=== PATIENT | male | born 1970 | race Caucasian/White ===

== ENCOUNTER 2017-01-17 12:23 | Emergency (ER) | payer SELFPAY ==
[2017-01-17 14:43] VITALS: BP 134/58
[2017-01-17] MEDS ORDERED: Silver Sulfadiazine 1%* 20 GM TOPICAL ONE (15:55)
--- NOTE | 2017-01-17 16:03 | UC ---
Gerardo Billingsley Alfonso, scribed for Ana Paula Morales MD on 01/17/17 at 1542 . Lower Extremity/Ankle HPI - HPI Summary HPI Summary: This patient is a 46 year old M presenting to [facility] with a chief complaint of LLE pain since 3 days ago. 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 The CC is described as a constant burning but mild. Pt rates the pain 3/10 in severity. Pt states pain worse with palpation. No analgesia taken. Pt states concerned regarding infection, Pt states had blisters on both anterior rodriguez and calf - psoterior blister popped in shower. Pt reports an erythematous blister at his LLE. Pt not immuncomprised. No h/o MRSA. This is workers comp claim. PMHx of NIDDM for which he is taking metformin. Denies PMHx of MRSA. Pt reports his last tetanus shot was likely within the past 4 years. Patients medication and allergies reviewed this visit. - History of Current Complaint Chief Complaint: UCBurn Stated Complaint: LEG BURN FROM STEAM Time Seen by Provider: 01/17/17 15:06 Hx Obtained From: Patient Onset/Duration: Sudden Onset, Lasting Days - 3, Still Present Severity Initially: Moderate Severity Currently: Moderate Pain Intensity: 3 Pain Scale Used: 0-10 Numeric Aggravating Factor(s): Other - palpation Alleviating Factor(s): Nothing Able to Bear Weight: Yes Related History: Occupational Injury - Allergies/Home Medications Allergies/Adverse Reactions: Allergies Allergy/AdvReac Type Severity Reaction Status Date / Time Adhesive Tape Allergy Rash Verified 01/17/17 13:00 Morphine Allergy BODY Verified 01/17/17 13:00 TEMPTURE FLUCTUATES QUICKLY Penicillins Allergy Nausea Verified 01/17/17 13:00 Vancomycin Allergy Itching Verified 01/17/17 13:00 Home Medications: Home Medications Sitagliptin Phosphate [Januvia] 25 mg PO 01/17/17 [History] PMH/Surg Hx/FS Hx/Imm Hx Previously Healthy: Yes Endocrine History: Diabetes - medication only - Surgical History Surgical History: Yes Surgery Procedure, Year, and Place: BILATERAL FEMUR SURGERY WITH RODS. DRAINED CALCIUM DEPOSIT ON LT THIGH. GALLBLADDER - Family History Known Family History: Positive: Diabetes - father, grandmother - Social History Occupation: Employed Full-time Lives: With Family Alcohol Use: None Substance Use Type: None Smoking Status (MU): Never Smoked Tobacco Review of Systems Constitutional: Negative Skin: Other - erythematous blister secondary to steam burn LLE Eyes: Negative ENT: Negative Respiratory: Negative Cardiovascular: Negative Gastrointestinal: Negative Genitourinary: Negative Motor: Negative Neurovascular: Negative Musculoskeletal: Negative Neurological: Negative Psychological: Negative All Other Systems Reviewed And Are Negative: Yes Physical Exam Triage Information Reviewed: Yes Appearance: Well-Appearing, No Pain Distress, Well-Nourished Vital Signs: Initial Vital Signs Temp 97.8 F 01/17/17 12:55 Pulse 83 01/17/17 12:55 Resp 16 01/17/17 12:55 BP 141/100 01/17/17 12:55 Pulse Ox 99 01/17/17 12:55 Vital Signs Reviewed: Yes ENT: Positive: Hearing grossly normal Neck: Positive: Supple Respiratory: Positive: Chest non-tender, Lungs clear, Normal breath sounds, No respiratory distress, No accessory muscle use Cardiovascular Exam: Normal Cardiovascular: Positive: RRR, No Murmur Musculoskeletal Exam: Normal Musculoskeletal: Positive: Strength Intact Neurological Exam: Normal Neurological: Positive: Alert, Muscle Tone Normal Psychological Exam: Normal Skin: Positive: Other - LLE Anterior distal rodriguez (above sock line) pt with 3cm blister with surruonding erythema. Mild discomfort. No fluctance outside blister. minimal warmth, no streaking Posterior distal calf, pt with 3 small blister, linear. 2 medial are intact, lateral blister unroofed. No erythema, no drainage, no fluctance Procedures - Procedure Summary Procedure Summary: Area cleans with Betadine in a sterile fashion. 25 gauge needle to decompression blister. copious, clear discharge flowed and then milked from blister. Wound covered with silvadene ointment, on stick and coban Pt tolerated well. Lower Extremity Course/Dx - Course Course Of Treatment: 46 year old M presents to the [facility] with a CC of LLE pain since 3 days ago. 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 Pt reports an erythematous blister at his LLE. PMHx of NIDDM for which he is taking metformin. Patient will be discharged with follow up from Dr. Merino (PCP) and Dr. Foreman (surgeon covering kong). Pt is agreeable with this plan. doxy. silvadene. wound care discussed. tdap utd. return precautions discussed - Differential Dx/Diagnosis Provider Diagnoses: Partial thickness second degree burn to LLE. workers comp paperwork complete Discharge - Discharge Plan Condition: Stable Disposition: HOME Prescriptions: Doxycycline (Monohydrate) [Doxycycline Monohydrate] 100 mg PO BID #14 cap Silver Sulfadiazine 1%* [SILVadine 1%*] 1 applic TOPICAL BID #1 jar Patient Education Materials: Second Degree Burn (ED) Referrals: Casie Merino [Primary Care Provider] - Mele Foreman MD [Medical Doctor] - Additional Instructions: - Keep area clean - Cover with thick layer of silvadene ointment, non stick bandage and yuridia wrap or coban - Take antibiotics as prescribed until gone - Okay to alternate ibuprofen (Advil, Motrin) and Tylenol every 3 hours for pain. Take with food - Contact your doctor or the Dr. Foreman, burn surgeon, to schedule a follow- up appointment this week. Contact your doctor, return here or go to the emergency department The documentation as recorded by the Gerardo vega Alfonso accurately reflects the service I personally performed and the decisions made by me, Ana Paula Morales MD.
== END 2017-01-17 16:15 | disposition home or self-care (01) ==
LOC: UCEAST 12:23
DX: T24.292A Burn of second degree of multiple sites of left lower limb, except ankle and foot, initial encounter (principal); X13.1XXA Other contact with steam and other hot vapors, initial encounter; Y93.89 Activity, other specified; Y92.9 Unspecified place or not applicable; Y99.0 Civilian activity done for income or pay; E11.9 Type 2 diabetes mellitus without complications; Z79.84 Long term (current) use of oral hypoglycemic drugs; Z88.5 Allergy status to narcotic agent; Z88.1 Allergy status to other antibiotic agents; Z88.0 Allergy status to penicillin; Z91.048 Other nonmedicinal substance allergy status
CPT/HCPCS: 16020; 99213; A9270-GY; G0463

== ENCOUNTER 2018-05-14 09:56 | Emergency (ER) | payer SELFPAY ==
--- NOTE | 2018-05-14 10:49 | UC ---
Lower Extremity/Ankle HPI - HPI Summary HPI Summary: 48 y/o male presents to the urgent care c/o pain in arch of left foot now swollen pt denies trauma - History of Current Complaint Chief Complaint: UCLowerExtremity Stated Complaint: ANKLE PAIN Time Seen by Provider: 05/14/18 10:38 Hx Obtained From: Patient Onset/Duration: Gradual Onset, Lasting Weeks - 1 week, Still Present, Worse Since - yesterday Severity Initially: Mild Severity Currently: Moderate Pain Intensity: 8 Pain Scale Used: 0-10 Numeric Aggravating Factor(s): Standing, Ambulation Alleviating Factor(s): Rest, OTC Meds Able to Bear Weight: Yes - Risk Factors Gout Risk Factors: Negative DVT Risk Factors: Negative Septic Arthritis Risk Factor: Negative - Allergies/Home Medications Allergies/Adverse Reactions: Allergies Allergy/AdvReac Type Severity Reaction Status Date / Time Adhesive Tape Allergy Rash Verified 01/17/17 13:00 morphine Allergy bodty temp Verified 05/14/18 10:01 increases Penicillins Allergy Nausea Verified 05/14/18 10:02 vancomycin Allergy Itching Verified 05/14/18 10:02 Home Medications: Home Medications Atorvastatin* [Lipitor 10 MG*] 10 mg PO DAILY 05/14/18 [History Confirmed ] Buspirone HCl 10 mg PO DAILY 05/14/18 [History Confirmed 05/14/18] Glimepiride 1 mg PO DAILY 05/14/18 [History Confirmed 05/14/18] Sitaglip/Metform XR50/1000(NR) [Janumet Xr (NR)] 1 tab PO DAILY [History Confirmed 05/14/18] Valsartan/HCTZ 160/25(NF) [Diovan Hct 160/25(NF)] 25 - 320 mg PO DAILY 05/14/18 [History Confirmed 05/14/18] amLODIPine TAB* [Norvasc 5 mg TAB*] 10 mg PO DAILY 05/14/18 [History Confirmed 05/14/18] PMH/Surg Hx/FS Hx/Imm Hx Previously Healthy: Yes Endocrine History: Diabetes, Dyslipidemia Cardiovascular History: Hypertension - Surgical History Surgical History: Yes Surgery Procedure, Year, and Place: BILATERAL FEMUR SURGERY WITH RODS. DRAINED CALCIUM DEPOSIT ON LT THIGH. GALLBLADDER - Family History Known Family History: Positive: Cardiac Disease, Hypertension, Diabetes - father , grandmother - Social History Occupation: Employed Full-time Lives: With Family Alcohol Use: None Substance Use Type: None Smoking Status (MU): Never Smoked Tobacco Review of Systems All Other Systems Reviewed And Are Negative: Yes Constitutional: Positive: Negative Skin: Positive: Rash - red rash aroun dthe medial aspect of foot w/ swelling, Other - painful blister in the distal plantar side of left foot Eyes: Positive: Negative ENT: Positive: Negative Respiratory: Positive: Negative Cardiovascular: Positive: Negative Gastrointestinal: Positive: Negative Genitourinary: Positive: Negative Motor: Positive: Negative Neurovascular: Positive: Negative Musculoskeletal: Positive: Other: - left foot pain Neurological: Positive: Negative Psychological: Positive: Negative Is Patient Immunocompromised?: No Physical Exam - Summary Physical Exam Summary: Cellulitis Vital Signs Reviewed: Yes General: well developed, well nourished obese male sitting in the examining table w/o any apparent distress. Eyes: Positive: Conjunctiva Clear - PERRLA, EOMI ENT: Positive: Normal ENT inspection, Hearing grossly normal, Pharynx normal, TMs normal Neck: Positive: Supple, Nontender, No Lymphadenopathy Respiratory: Positive: Chest nontender, Lungs clear, Normal breath sounds Cardiovascular: Positive: RRR, No Murmur, Pulses Normal Abdomen Description: Positive: Nontender, No Organomegaly, Soft. Negative: CVA Tenderness (R), CVA Tenderness (L) Bowel Sounds: Positive: Present Musculoskeletal: Positive: Strength Intact, ROM Intact, No Edema Neurological Exam: Normal Psychological Exam: Normal Skin: Positive: rashes - plantar side of the distal left foot w/ a small open blister red and tender to palpation. and also w/ erythematous patch w/ indistinct borders, warm to touch, swelling and tender to palpation on the medial aspect of the left foot around arch and moderate swelling. FROM of left foot. Triage Information Reviewed: Yes Vital Signs: Initial Vital Signs Temp 97 F 05/14/18 10:03 Pulse 93 05/14/18 10:03 Resp 17 05/14/18 10:03 BP 148/99 05/14/18 10:03 Pulse Ox 100 05/14/18 10:03 Lower Extremity Course/Dx - Course Course Of Treatment: Pt w/ infected blister on the plantar side and cellulitis of the left foot. Pt allerig reaction to Amoxicillin is nausea dna has taking kelfex before w/o any problems. Wound cleaned w/ iodines swabs by me and bacitracin oint applied and covered w/ sterile dressing. Pt Rx Keflex PO, and topical Bacitracin. rash demarcated with a skin marker and Advised if rash doubles in size and if she develops fever to go to the ER for further treatment. Pt BP today elevated w/o Hx of HTN. Pt advised to decrease salt in diet and monitor BP at home if it continues to be elevated to f/u with PCP for further management. Pt understood and agreed w/ plan of care - Differential Dx/Diagnosis Differential Diagnosis/HQI/PQRI: Arthritis, Cellulitis, Fracture (Closed), Gout , Infection, Sprain, Strain, Tendonitis Provider Diagnoses: 1- Left foot cellulitis. 2- Uncontrolled HTN Discharge - Sign-Out/Discharge Documenting (check all that apply): Patient Departure - D/c home All imaging exams completed and their final reports reviewed: No Studies - Discharge Plan Condition: Stable Disposition: HOME Prescriptions: Bacitracin OINTMENT* 1 applic TOPICAL TID #1 tube Cephalexin CAP* [Keflex CAP*] 500 mg PO QID #28 cap Patient Education Materials: Cellulitis (ED), Low-Sodium Diet (ED) Referrals: Casie Merino [Primary Care Provider] - 3 Days Additional Instructions: 1-Please take full course of Antibiotic. Apply Bacitracin ointme. over the foot blister as directed. Keep wound clean and dry 2- If redness and swelling doubles in size despite taking antibiotic and fever develops please go to the ER immediately. 3-Avoid standing for long periods of time or flexing your foot, keep it elevated and keep wound clean and dry. 4-Please F/u with your PCP in 3 days if not improvement of symptoms for further evaluation and treatment. 5-Your BP is elevated today. please decrease salt in your diet, monitor BP and if it continues to be elevated please f/u with your PCP for further management - Billing Disposition and Condition Condition: STABLE Disposition: Home
[2018-05-14 11:19] VITALS: BP 163/95
== END 2018-05-14 11:07 | disposition home or self-care (01) ==
LOC: UCEAST 09:56
DX: L03.116 Cellulitis of left lower limb (principal); I10 Essential (primary) hypertension; E78.5 Hyperlipidemia, unspecified; E11.9 Type 2 diabetes mellitus without complications; Z88.1 Allergy status to other antibiotic agents; Z88.0 Allergy status to penicillin; Z88.5 Allergy status to narcotic agent; Z91.048 Other nonmedicinal substance allergy status; Z79.899 Other long term (current) drug therapy
CPT/HCPCS: 99212; G0463

== ENCOUNTER 2019-03-18 22:45 | Emergency (ER) | payer OTHER ==
[2019-03-18] MEDS ORDERED: ceFAZolin 1 GM in Dextrose (*) 1 GM/50 ML BAG IVPB ONE (23:09)
[2019-03-18 23:30] LABS: ABS Basophils 0.1 10^3/ul (0-0.2); ABS Eosinophils 0.1 10^3/ul (0-0.6); ABS Lymphocytes 2.2 10^3/ul (1.0-4.8); ABS Monocytes 0.9 10^3/ul (0-0.8); ABS Neutrophils 15.2 10^3/ul (1.5-7.7); Eosinophil % 0.4 %; Hematocrit 40 % (42-52); Hemoglobin 13.7 g/dL (14.0-18.0); Lymphocyte % 11.9 %; Mean Corpuscular HGB Conc 34 g/dL (31-36); Mean Corpuscular Hemoglobin 29 pg (27-31); Mean Corpuscular Volume 85 fL (80-94); Mean Platelet Volume 8.3 fL (7.4-10.4); Platelet Count 261 10^3/uL (150-450); Red Blood Count 4.73 10^6 /uL (4.18-5.48); Red Cell Distribution Width 14 % (10-15); White Blood Count 18.5 10^3/uL (3.5-10.8)
[2019-03-18] MEDS ORDERED: ceFAZolin 1 GM* X ONE DOSE (AddVan) IVPB ×2 (23:35)
[2019-03-18 23:46] LABS: Albumin 3.8 g/dL (3.2-5.2); Albumin/Globulin Ratio 1.2 (1-3); BUN/Creatinine Ratio 10.5 (8-20); C Reactive Protein 228.78 mg/L (<8.01); Calcium 9.1 mg/dL (8.6-10.3); EGFR Non-African American 84.3 (>60); Globulin 3.2 g/dL (2-4); Potassium 3.7 mmol/L (3.5-5.0); Total Bilirubin 0.7 mg/dL (0.2-1.0)
--- NOTE | 2019-03-19 00:27 | ED ---
Lower Extremity - HPI Summary HPI Summary: Patient is a 48 y/o M presenting to [facility] with complaints of right foot swelling. He states that he sustained a burn to the bottom of his right foot a few weeks ago as a result of hot asphalt. PCP was treating this injury with silvadene. However, PCP recently changed patient's treatment from silvadene to seaweed patches. He reports that swelling of right foot onset today. He notes that he has had some drainage from the foot as well. Fever is denied. Patient states that he is pre-diabetic and is taking janumet. He claims that he cannot be admitted as his father is currently hospitalized at [facility]. On triage, pain is rated 6/10, nothing is noted to aggravate/alleviate Sx. Home medications and allergies are reviewed. - History of Current Complaint Chief Complaint: EDExtremityLower Stated Complaint: RT FOOT SWOLLEN PER PT Time Seen by Provider: 03/18/19 23:03 Hx Obtained From: Patient Onset of Pain: Prior to Arrival Onset/Duration: Still Present Severity Currently: Moderate Pain Intensity: 6 Pain Scale Used: 0-10 Numeric Timing: Constant Location: Is Discrete @ - right foot Associated Signs And Symptoms: Positive: Swelling, Other - drainage. Negative: Fever Aggravating Factor(s): Nothing Alleviating Factor(s): Nothing - Allergies/Home Medications Allergies/Adverse Reactions: Allergies Allergy/AdvReac Type Severity Reaction Status Date / Time Adhesive Tape Allergy Rash Verified 03/18/19 23:18 morphine Allergy bodty temp Verified 03/18/19 23:18 increases Penicillins Allergy Nausea Verified 03/18/19 23:18 tramadol Allergy Rash And Verified 03/18/19 23:18 Itching vancomycin Allergy Itching Verified 03/18/19 23:18 PMH/Surg Hx/FS Hx/Imm Hx Endocrine/Hematology History: Reports: Hx Diabetes - PRE-DIABETES Cardiovascular History: Reports: Hx Hypertension Denies: Hx Pacemaker/ICD History: Denies: Hx Renal Disease Sensory History: Denies: Hx Hearing Aid Psychiatric History: Denies: Hx Panic Disorder - Surgical History Surgery Procedure, Year, and Place: BILATERAL FEMUR SURGERY WITH RODS. DRAINED CALCIUM DEPOSIT ON LT THIGH. GALLBLADDER Infectious Disease History: No Infectious Disease History: Denies: Traveled Outside the [place] in Last 30 Days - Family History Known Family History: Positive: Cardiac Disease, Hypertension, Diabetes - father , grandmother - Social History Alcohol Use: None Substance Use Type: Reports: None Smoking Status (MU): Never Smoked Tobacco Review of Systems Negative: Fever Musculoskeletal: Other - drainage from right foot Positive: Edema - right foot All Other Systems Reviewed And Are Negative: Yes Physical Exam - Summary Physical Exam Summary: Appearance: Well-appearing, Well-nourished, lying in bed comfortably Skin: Warm, dry, no obvious rash; right foot is noted to be diffusely swollen. There is a quarter-sized ulcer with purulent drainage. The foot is diffusely erythematous, including the dorsum of the foot. Eyes: sclera anicteric, no conjunctival pallor ENT: mucous membranes moist, pharynx appears normal Neck: Supple, nontender Respiratory: Clear to auscultation, no signs of respiratory distress Cardiovascular: Normal S1, S2. No murmurs. Normal distal pulses in tibial and radial bilaterally. Abdomen: Soft, nontender, normal active bowel sounds present Musculoskeletal: Normal, Strength/ROM Intact Neurological: A&Ox3, awake and alert, mentation is normal, speech is fluent and appropriate Psychiatric: affect is normal, does not appear anxious or depressed Triage Information Reviewed: Yes Vital Signs On Initial Exam: Initial Vitals Temp Pulse Resp BP Pulse Ox 96.4 F 89 16 127/90 90 03/18/19 22:46 03/18/19 22:46 03/18/19 22:46 03/18/19 22:46 03/18/19 22:46 Vital Signs Reviewed: Yes Diagnostics - Vital Signs Vital Signs Temp Pulse Resp BP Pulse Ox 03/18/19 22:46 96.4 F 89 16 127/90 90 - Laboratory Lab Results: Lab Results 03/18/19 03/18/19 03/18/19 Range/Units 23:23 23:23 23:23 WBC 18.5 H (3.5-10.8) 10^3/uL RBC 4.73 (4.18-5.48) 10^6 /uL Hgb 13.7 L (14.0-18.0) g/dL Hct 40 L (42-52) % MCV 85 (80-94) fL MCH 29 (27-31) pg MCHC 34 (31-36) g/dL RDW 14 (10-15) % Plt Count 261 (150-450) 10^3/uL MPV 8.3 (7.4-10.4) fL Neut % (Auto) 82.3 % Lymph % (Auto) 11.9 % Gregory % (Auto) 4.8 % Eos % (Auto) 0.4 % Baso % (Auto) 0.6 % Absolute Neuts (auto) 15.2 H (1.5-7.7) 10^3/ul Absolute Lymphs (auto) 2.2 (1.0-4.8) 10^3/ul Absolute Monos (auto) 0.9 H (0-0.8) 10^3/ul Absolute Eos (auto) 0.1 (0-0.6) 10^3/ul Absolute Basos (auto) 0.1 (0-0.2) 10^3/ul Absolute Nucleated RBC 0.0 10^3/ul Nucleated RBC % 0.0 Sodium 132 L (135-145) mmol/L Potassium 3.7 (3.5-5.0) mmol/L Chloride 97 L (101-111) mmol/L Carbon Dioxide 29 (22-32) mmol/L Anion Gap 6 (2-11) mmol/L BUN 10 (6-24) mg/dL Creatinine 0.95 (0.67-1.17) mg/dL Est GFR ( Amer) 102.0 (>60) Est GFR (Non-Af Amer) 84.3 (>60) BUN/Creatinine Ratio 10.5 (8-20) Glucose 324 H (70-100) mg/dL Lactic Acid 1.2 (0.5-2.0) mmol/L Calcium 9.1 (8.6-10.3) mg/dL Total Bilirubin 0.70 (0.2-1.0) mg/dL AST 9 L (13-39) U/L ALT 14 (7-52) U/L Alkaline Phosphatase 87 (34-104) U/L C-Reactive Protein 228.78 H (<8.01) mg/L Total Protein 7.0 (6.4-8.9) g/dL Albumin 3.8 (3.2-5.2) g/dL Globulin 3.2 (2-4) g/dL Albumin/Globulin Ratio 1.2 (1-3) Result Diagrams: 03/18/19 23:23 03/18/19 23:23 Lab Statement: Any lab studies that have been ordered have been reviewed, and results considered in the medical decision making process. Re-Evaluation - Re-Evaluation First Eval Re-Evaluation Time: 23:35 Comment: Results of labs and tests were discussed. Admission was offered to patient, but he declined and wants to leave. Consequences of leaving AMA were extensively discussed, including significant illness, injury, disability, and possible . Patient understands these risks but is still adamant that he wants to leave AMA. Lower Extremity Course/Dx - Course Course Of Treatment: Patient is a 48 y/o M presenting to [facility] with complaints of right foot swelling. He states that he sustained a burn to the bottom of his right foot a few weeks ago as a result of hot asphalt. PCP was treating this injury with silvadene. However, PCP recently changed patient's treatment from silvadene to seaweed patches. He reports that swelling of right foot onset today. He notes that he has had some drainage from the foot as well. Fever is denied. Patient states that he is pre-diabetic and is taking janumet. He claims that he cannot be admitted as his father is currently hospitalized at [facility]. On physical exam, right foot is noted to be diffusely swollen. There is a quarter-sized ulcer with purulent drainage. The foot is diffusely erythematous, including the dorsum of the foot. Bloodwork was obtained. Abnormal values include WBC 18.5, Hgb 13.7, Hct 40, absolute neuts 15.2, absolute monos 0.9, sodium 132, chloride 97, glucose 324, AST 9, CRP 228.78, During ED course, patient received Kefzol 1 gm in dextrose duplex, 1 gm in 50 mls @ 200 mls/hr IVPB. Results of labs and tests were discussed. Admission was offered to patient, but he declined and wants to leave. Consequences of leaving AMA were extensively discussed, including significant illness, injury, disability, and possible . Patient understands these risks but is still adamant that he wants to leave AMA. He was prescribed Keflex, advised to keep his scheduled appointment with the wound clinic, and to return for worsening symptoms. - Diagnoses Provider Diagnoses: Cellulitis, Diabetic foot ulcer Discharge ED - Sign-Out/Discharge Documenting (check all that apply): Patient Departure - AMA Patient Received Moderate/Deep Sedation with Procedure: No - Discharge Plan Condition: Fair Disposition: AGAINST MEDICAL ADVICE Prescriptions: Cephalexin CAP* [Keflex CAP*] 500 mg PO QID #40 cap Patient Education Materials: Cellulitis (ED), Acute Wound Care (ED), Against Medical Advice (ED) Referrals: Casie Merino [Primary Care Provider] - 3 Days Additional Instructions: I am very concerned about this infection, especially the possibility that it may spread to the bone with that deep ulcer there. If this is getting much worse over the next couple of days, please come back so we can take another look at it. If it is improving, definitely keep your appt with the wound center. - Billing Disposition and Condition Condition: FAIR Disposition: Against Medical Advice - Attestation Statements Document Initiated by Christie: Yes Documenting Scribe: SALMA BEDOYA Provider For Whom Christie is Documenting (Include Credential): JOHNNY MINAYA MD Scribe Attestation: ISALMA, scribed for JOHNNY MINAYA MD on 03/20/19 at 0515. Scribe Documentation Reviewed: Yes Provider Attestation: The documentation as recorded by the SALMA vega accurately reflects the service I personally performed and the decisions made by me, JOHNNY MINAYA MD Status of Scribe Document: Viewed
[2019-03-19 00:38] VITALS: BP 145/80
== END 2019-03-19 00:31 | disposition left against medical advice (07) ==
LOC: ED 22:45
DX: L03.115 Cellulitis of right lower limb (principal); E11.621 Type 2 diabetes mellitus with foot ulcer; Z79.84 Long term (current) use of oral hypoglycemic drugs; I10 Essential (primary) hypertension; Z88.1 Allergy status to other antibiotic agents; Z88.5 Allergy status to narcotic agent; Z88.0 Allergy status to penicillin; Z91.048 Other nonmedicinal substance allergy status
CPT/HCPCS: 36415; 80053; 83605; 85025; 86140; 96365; 99283; J0690

== ENCOUNTER 2019-03-23 11:24 | Inpatient (IN) | payer OTHER ==
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
--- NOTE | 2019-03-23 11:39 | CONSULT ---
Consult Consult: Patient seen and examined in the wound center. Please see separate consultation dictation for . Briefly, patient was diagnosed with a two month history of a right diabetic foot ulcer. Cellulitis identified. Incision and drainage performed in the wound center. Recommendation for admission with IV antibiotics and MRI of the right foot.
[2019-03-23] MEDS ORDERED: Dextrose 50% VIAL 50 ml IV PUSH PRN (13:58)
[2019-03-23] MEDS ORDERED: Acetaminophen TAB* 325 MG PO PRN (13:58)
[2019-03-23] MEDS ORDERED: Vancomycin per Pharmacy* NOTE FOLLOW UP SCH (14:00)
[2019-03-23 14:05] LABS: ABS Eosinophils 0.2 10^3/ul (0-0.6); ABS Monocytes 0.6 10^3/ul (0-0.8); ABS Neutrophils 7.9 10^3/ul (1.5-7.7); Eosinophil % 1.9 %; Hematocrit 40 % (42-52); Hemoglobin 13.8 g/dL (14.0-18.0); Lymphocyte % 18.5 %; Mean Corpuscular HGB Conc 34 g/dL (31-36); Mean Corpuscular Hemoglobin 29 pg (27-31); Mean Corpuscular Volume 84 fL (80-94); Mean Platelet Volume 8.9 fL (7.4-10.4); Platelet Count 384 10^3/uL (150-450); Red Blood Count 4.78 10^6 /uL (4.18-5.48); Red Cell Distribution Width 14 % (10-15); White Blood Count 10.8 10^3/uL (3.5-10.8)
[2019-03-23 14:15] LABS: Albumin 3.6 g/dL (3.2-5.2); Albumin/Globulin Ratio 1.1 (1-3); BUN/Creatinine Ratio 16.5 (8-20); C Reactive Protein 139.67 mg/L (<8.01); Calcium 9.7 mg/dL (8.6-10.3); EGFR African American 115.9 (>60); EGFR Non-African American 95.8 (>60); Globulin 3.3 g/dL (2-4); Potassium 3.9 mmol/L (3.5-5.0); Total Bilirubin 0.5 mg/dL (0.2-1.0); Total Protein 6.9 g/dL (6.4-8.9)
[2019-03-23] MEDS: Heparin VIAL(*) 5000 UNITS/ML VIAL (FIVE THOUSAND) SUBCUT SCH ×2 (14:51→22:10)
[2019-03-23] MEDS: Cefepime 1 GM in Dextrose(*) 1 GM/50 ML BAG IV SCH (14:51)
[2019-03-23] MEDS: Vancomycin(*) 1,500 MG in NS 0.9% 250 ML* 250 ML IVPB ONE ×2 (15:24→16:30)
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
[2019-03-23 16:13] LABS: Erythrocyte Sed Rate 80 mm/Hr (0-14)
[2019-03-23] MEDS: diPHENhydraMINE IV* 50 MG/ML 1 ml VIAL (BENADRYL) IV PRN ×2 (16:30→23:54)
[2019-03-23] MEDS: oxyCODONE/Acetamin 5/325 MG* TAB PO PRN ×2 (17:15→22:13)
[2019-03-23] MEDS: Insulin LISPRO* 1 UNITS UNIT SUBCUT SCH ×2 (17:40→21:15)
[2019-03-23] MEDS: metroNIDAZOLE IV 500 MG/100ML* 500 MG/100 ML BAG IVPB SCH (18:39)
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
[2019-03-23] MEDS: Vancomycin(*) 1,250 MG in NS 0.9% 250 ML* 250 ML IVPB SCH (23:50)
[2019-03-24] MEDS: Cefepime 1 GM in Dextrose(*) 1 GM/50 ML BAG IV SCH ×2 (02:02→16:27)
[2019-03-24] MEDS: metroNIDAZOLE IV 500 MG/100ML* 500 MG/100 ML BAG IVPB SCH ×2 (05:14→17:19)
[2019-03-24] MEDS: Heparin VIAL(*) 5000 UNITS/ML VIAL (FIVE THOUSAND) SUBCUT SCH ×3 (05:52→21:23)
[2019-03-24] MEDS: Vancomycin(*) 1,250 MG in NS 0.9% 250 ML* 250 ML IVPB SCH ×3 (08:50→18:38)
[2019-03-24] MEDS: diPHENhydraMINE IV* 50 MG/ML 1 ml VIAL (BENADRYL) IV PRN (09:02)
[2019-03-24] MEDS: Hydrochlorothiazide TAB* 25 MG PO SCH (09:50)
[2019-03-24] MEDS: Valsartan TAB* 160 MG PO SCH (09:50)
[2019-03-24] MEDS: amLODIPine TAB* 5 MG PO SCH (09:52)
[2019-03-24] MEDS: busPIRone TAB* 10 MG PO SCH (09:52)
[2019-03-24] MEDS: Atorvastatin* 10 MG TAB PO SCH (09:52)
[2019-03-24] MEDS: Insulin LISPRO* 1 UNITS UNIT SUBCUT SCH ×4 (09:53→21:22)
[2019-03-24] MEDS: CMC:Glimepiride (NF) 2 MG TAB PO SCH (10:11)
--- NOTE | 2019-03-24 10:14 | PN ---
Progress Note - Progress Note Date of Service: 03/24/19 SOAP: Subjective: []Patient seen at bedside, pleasant and cooperative. Denies fever, chills, nausea or vomiting. Pain in right foot is moderate at its worst, mainly when foot in dependent position. Denies rash or itching after Vancomycin. Objective: [] Vital Signs Temp 98.2 F 03/24/19 07:12 Pulse 65 03/24/19 07:12 Resp 18 03/24/19 09:02 BP 142/69 03/24/19 07:12 Pulse Ox 96 03/24/19 07:12 Intake & Output 03/23/19 03/24/19 03/24/19 18:59 06:59 18:59 Intake Total 200 965 Output Total 200 Balance 200 765 Weight 252 lb 252 lb Intake: IVPB 465 ABX - FLAGYL 200 ABX - VANCOMYCIN 265 Oral 200 500 Output: Urine 200 Other: Estimated Void Large Large Laboratory Results - last 24 hr 03/23/19 03/23/19 03/23/19 12:00 12:00 12:00 WBC 10.8 RBC 4.78 Hgb 13.8 L Hct 40 L MCV 84 MCH 29 MCHC 34 RDW 14 Plt Count 384 MPV 8.9 Neut % (Auto) 73.6 Lymph % (Auto) 18.5 Callaway % (Auto) 5.7 Eos % (Auto) 1.9 Baso % (Auto) 0.3 Absolute Neuts (auto) 7.9 H Absolute Lymphs (auto) 2.0 Absolute Monos (auto) 0.6 Absolute Eos (auto) 0.2 Absolute Basos (auto) 0.0 Absolute Nucleated RBC 0.0 Nucleated RBC % 0.0 ESR 80 H Sodium 133 L Potassium 3.9 Chloride 95 L Carbon Dioxide 29 Anion Gap 9 BUN 14 Creatinine 0.85 Est GFR ( Amer) 115.9 Est GFR (Non-Af Amer) 95.8 BUN/Creatinine Ratio 16.5 Glucose 176 H POC Glucose (mg/dL) Hemoglobin A1c 9.6 H Calcium 9.7 Total Bilirubin 0.50 AST 21 ALT 33 Alkaline Phosphatase 93 C-Reactive Protein 139.67 H Total Protein 6.9 Albumin 3.6 Globulin 3.3 Albumin/Globulin Ratio 1.1 03/23/19 03/23/19 03/24/19 17:03 21:06 08:49 WBC RBC Hgb Hct MCV MCH MCHC RDW Plt Count MPV Neut % (Auto) Lymph % (Auto) Callaway % (Auto) Eos % (Auto) Baso % (Auto) Absolute Neuts (auto) Absolute Lymphs (auto) Absolute Monos (auto) Absolute Eos (auto) Absolute Basos (auto) Absolute Nucleated RBC Nucleated RBC % ESR Sodium Potassium Chloride Carbon Dioxide Anion Gap BUN Creatinine Est GFR ( Amer) Est GFR (Non-Af Amer) BUN/Creatinine Ratio Glucose POC Glucose (mg/dL) 191 H 154 H 139 H Hemoglobin A1c Calcium Total Bilirubin AST ALT Alkaline Phosphatase C-Reactive Protein Total Protein Albumin Globulin Albumin/Globulin Ratio Right foot dressings changed, small area of serosanguenous fluid on plantar dressing and bloody discharge on the dorsal Plantar ulcer with wet necrotic tissue at base, no foul odor dorsal iodoform dressing noted, toes and foot still moderately swollen, erythema is mildly improved calf NT and soft Assessment: [] Right foot infection/ osteomyelitis Plan: []MRI reveals soft tissue abscess and Osteomyelitis 3rd toe and 3rd metatarsal head He will likely require surgery Tuesday Recommend NWB RLE Continue IV Vanco/ Cefepime NPO after midnight Tuesday night
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
[2019-03-24 11:41] LABS: ABS Basophils 0.1 10^3/ul (0-0.2); ABS Eosinophils 0.2 10^3/ul (0-0.6); ABS Lymphocytes 1.6 10^3/ul (1.0-4.8); ABS Monocytes 0.5 10^3/ul (0-0.8); ABS Neutrophils 6.2 10^3/ul (1.5-7.7); Eosinophil % 1.9 %; Hematocrit 39 % (42-52); Hemoglobin 13.1 g/dL (14.0-18.0); Lymphocyte % 18.9 %; Mean Corpuscular HGB Conc 33 g/dL (31-36); Mean Corpuscular Hemoglobin 28 pg (27-31); Mean Corpuscular Volume 85 fL (80-94); Mean Platelet Volume 8.2 fL (7.4-10.4); Nucleated Red Blood Cells % 0.1; Platelet Count 356 10^3/uL (150-450); Red Blood Count 4.64 10^6 /uL (4.18-5.48); Red Cell Distribution Width 14 % (10-15); White Blood Count 8.4 10^3/uL (3.5-10.8)
[2019-03-24 11:58] LABS: BUN/Creatinine Ratio 17.2 (8-20); Calcium 9.1 mg/dL (8.6-10.3); EGFR African American 97.2 (>60); EGFR Non-African American 80.3 (>60); Potassium 4.3 mmol/L (3.5-5.0)
[2019-03-24] MEDS: oxyCODONE/Acetamin 5/325 MG* TAB PO PRN ×2 (12:08→21:23)
[2019-03-24] MEDS ORDERED: Vancomycin Trough Check NOTE FOLLOW UP ONE (15:30)
[2019-03-25] MEDS: Cefepime 1 GM in Dextrose(*) 1 GM/50 ML BAG IV SCH ×2 (01:38→13:47)
[2019-03-25] MEDS: metroNIDAZOLE IV 500 MG/100ML* 500 MG/100 ML BAG IVPB SCH ×2 (05:04→16:57)
[2019-03-25] MEDS: Vancomycin(*) 1,250 MG in NS 0.9% 250 ML* 250 ML IVPB SCH ×2 (06:13→18:00)
[2019-03-25] MEDS: Heparin VIAL(*) 5000 UNITS/ML VIAL (FIVE THOUSAND) SUBCUT SCH ×3 (06:14→22:11)
[2019-03-25 06:18] LABS: ABS Basophils 0.1 10^3/ul (0-0.2); ABS Eosinophils 0.2 10^3/ul (0-0.6); ABS Monocytes 0.6 10^3/ul (0-0.8); ABS Neutrophils 6.4 10^3/ul (1.5-7.7); Eosinophil % 2.2 %; Hematocrit 40 % (42-52); Hemoglobin 13.4 g/dL (14.0-18.0); Lymphocyte % 21.2 %; Mean Corpuscular HGB Conc 34 g/dL (31-36); Mean Corpuscular Hemoglobin 29 pg (27-31); Mean Corpuscular Volume 85 fL (80-94); Mean Platelet Volume 8.3 fL (7.4-10.4); Platelet Count 362 10^3/uL (150-450); Red Blood Count 4.67 10^6 /uL (4.18-5.48); Red Cell Distribution Width 14 % (10-15); White Blood Count 9.2 10^3/uL (3.5-10.8)
[2019-03-25 06:29] LABS: BUN/Creatinine Ratio 17.4 (8-20); C Reactive Protein 67.03 mg/L (<8.01); Calcium 9.3 mg/dL (8.6-10.3); EGFR African American 114.4 (>60); EGFR Non-African American 94.5 (>60); Potassium 4.4 mmol/L (3.5-5.0)
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
[2019-03-25] MEDS: oxyCODONE/Acetamin 5/325 MG* TAB PO PRN ×2 (10:39→20:17)
[2019-03-25] MEDS: Insulin LISPRO* 1 UNITS UNIT SUBCUT SCH ×4 (10:40→21:59)
[2019-03-25] MEDS: CMC:Glimepiride (NF) 2 MG TAB PO SCH (10:42)
[2019-03-25] MEDS: amLODIPine TAB* 5 MG PO SCH (10:42)
[2019-03-25] MEDS: busPIRone TAB* 10 MG PO SCH (10:43)
[2019-03-25] MEDS: Atorvastatin* 10 MG TAB PO SCH (10:43)
[2019-03-25] MEDS: Valsartan TAB* 160 MG PO SCH (10:44)
[2019-03-25] MEDS: Hydrochlorothiazide TAB* 25 MG PO SCH (10:44)
[2019-03-26] MEDS: Cefepime 1 GM in Dextrose(*) 1 GM/50 ML BAG IV SCH ×2 (02:14→18:10)
[2019-03-26] MEDS: metroNIDAZOLE IV 500 MG/100ML* 500 MG/100 ML BAG IVPB SCH ×2 (05:03→18:10)
[2019-03-26 05:08] LABS: ABS Eosinophils 0.2 10^3/ul (0-0.6); ABS Lymphocytes 1.8 10^3/ul (1.0-4.8); ABS Monocytes 0.5 10^3/ul (0-0.8); ABS Neutrophils 5.6 10^3/ul (1.5-7.7); Eosinophil % 1.9 %; Hematocrit 40 % (42-52); Hemoglobin 13.5 g/dL (14.0-18.0); Mean Corpuscular HGB Conc 34 g/dL (31-36); Mean Corpuscular Hemoglobin 29 pg (27-31); Mean Corpuscular Volume 84 fL (80-94); Platelet Count 361 10^3/uL (150-450); Red Blood Count 4.71 10^6 /uL (4.18-5.48); Red Cell Distribution Width 14 % (10-15); White Blood Count 8.1 10^3/uL (3.5-10.8)
[2019-03-26 05:14] LABS: INR 1.21 (0.82-1.09)
[2019-03-26 05:24] LABS: BUN/Creatinine Ratio 15.1 (8-20); Calcium 9.1 mg/dL (8.6-10.3); EGFR African American 114.4 (>60); EGFR Non-African American 94.5 (>60); Potassium 4.2 mmol/L (3.5-5.0)
[2019-03-26] MEDS ORDERED: Vancomycin Trough Check NOTE FOLLOW UP ONE (05:30)
[2019-03-26] MEDS: Vancomycin(*) 1,250 MG in NS 0.9% 250 ML* 250 ML IVPB SCH (06:14)
[2019-03-26] MEDS: CMC:Glimepiride (NF) 2 MG TAB PO SCH (07:47)
[2019-03-26] MEDS: Insulin LISPRO* 1 UNITS UNIT SUBCUT SCH ×4 (09:13→21:25)
[2019-03-26] MEDS ORDERED: Buffered Lidocaine 1% SYRIN* 1 ML/SYRINGE INTRADERM ONE (10:32)
[2019-03-26] MEDS: Valsartan TAB* 160 MG PO SCH (10:47)
[2019-03-26] MEDS: busPIRone TAB* 10 MG PO SCH (10:52)
[2019-03-26] MEDS: Hydrochlorothiazide TAB* 25 MG PO SCH (10:53)
[2019-03-26] MEDS: Atorvastatin* 10 MG TAB PO SCH (10:53)
[2019-03-26] MEDS: amLODIPine TAB* 5 MG PO SCH (10:53)
[2019-03-26] MEDS: Lactated Ringers 1000 ML Bag* 1,000 ML IV SCH (13:37)
[2019-03-26] MEDS ORDERED: Midazolam* 1 MG/ML 2 ML VIAL (2 MG) ONE (13:44)
[2019-03-26] MEDS ORDERED: Lidocaine 2% PF* 10 ML AMP ONE (14:08)
[2019-03-26] MEDS ORDERED: Bupivacaine 0.5%* 50 ML MDV VIAL ONE (14:08)
[2019-03-26] MEDS ORDERED: fentaNYL* 50 MCG/ML 2 ML VIAL (100 MCG VIAL) ONE ×3 (14:35→16:13)
[2019-03-26] MEDS ORDERED: OXYTOCIN* 10 UNITS/ML 1 ML VIAL ONE (14:36)
[2019-03-26] MEDS ORDERED: Lidocaine 2% PF * 5 ML VIAL ONE (14:36)
[2019-03-26] MEDS ORDERED: Propofol* 10 MG/ML 20 ML BTL ONE ×2 (14:36→15:08)
[2019-03-26] MEDS ORDERED: Ondansetron INJ* 2 MG/ML VIAL IV PRN (14:53)
[2019-03-26] MEDS ORDERED: DiMENhydriNATE IV* 50 MG/ML VIAL IV PUSH PRN (14:53)
[2019-03-26] MEDS ORDERED: Naloxone* 0.4 MG/ML 1 ML VIAL IV PRN (14:53)
[2019-03-26] MEDS: fentaNYL* 50 MCG/ML 2 ML VIAL (100 MCG VIAL) IV PRN ×4 (15:52→16:40)
[2019-03-26] MEDS ORDERED: fentaNYL* 50 MCG/ML 2 ML VIAL (100 MCG VIAL) IV PRN (16:47)
[2019-03-26] MEDS ORDERED: Acetaminophen IV 1GM/100ML * 1,000 MG/100 ML VIAL IVPB ONE (16:48)
[2019-03-26] MEDS ORDERED: Acetaminophen IV 1GM/100ML * 100 ML ONE (16:51)
[2019-03-26] MEDS: oxyCODONE/Acetamin 5/325 MG* TAB PO PRN ×2 (18:11→21:27)
[2019-03-26] MEDS ORDERED: Nicotine PATCH 14 MG/24 HR* PATCH TRANSDERM SCH (18:30)
--- NOTE | 2019-03-26 19:06 | PN ---
Subjective Date of Service: 03/26/19 Interval History: Mr. Stone is feeling well this morning. He offers no complaints. Admits to continued "discomfort" in the right foot. Described as pressure and tingling. Denies CP, SOB, N/V. No concerns from nursing. Family History: Unchanged from Admission Social History: Unchanged from Admission Past Medical History: Unchanged from Admission Objective Active Medications: Acetaminophen (Tylenol Tab*) 650 mg PO Q6H PRN MILD PAIN or TEMP > 100.4 Amlodipine Besylate (Norvasc Tab*) 10 mg PO DAILY [facility] Atorvastatin Calcium (Lipitor*) 10 mg PO DAILY [facility] Buspirone HCl (Buspar Tab*) 10 mg PO DAILY [facility] Dextrose (Dextrose 50% Vial 50 Ml*) 25 ml IV PUSH .FOR FS < 60 - SS PRN FS < 60 Dimenhydrinate (Dramamine Iv*) 25 mg IV PUSH ONCE PRN NAUSEA/VOMITING Diphenhydramine HCl (Benadryl Iv*) 25 mg IV Q6H PRN ITCHING Fentanyl Citrate (Fentanyl*) 50 mcg IV Q5M PRN PAIN - MODERATE Fentanyl Citrate (Fentanyl*) 50 mcg IV Q5M PRN PAIN - MODERATE Glimepiride (Glimepiride (Nf)) 1 mg PO DAILY [facility] Hydrochlorothiazide (Hydrodiuril Tab*) 25 mg PO DAILY [facility] Cefepime HCl (Maxipime 1 Gm In Dextrose Duplex (*)) 1 gm in 50 mls @ 100 mls/ hr IV Q12H [facility] Metronidazole/Sodium Chloride (Flagyl 500 Mg Ivpb*) 500 mg in 100 mls @ 100 mls /hr IVPB Q12H [facility] Lactated Ringer's (Lactated Ringers 1000 Ml Bag*) 1,000 mls @ 125 mls/hr IV PER RATE [facility] Acetaminophen (Ofirmev*) 1,000 mg in 100 mls @ 400 mls/hr IVPB ONCE ONE Insulin Human Lispro (Humalog*) 0 units SUBCUT 0730,1130,1630,2100 [facility]; Protocol Naloxone HCl (Narcan*) 0.08 mg IV Q2M PRN severe induced resp depression Ondansetron HCl (Zofran Inj*) 4 mg IV ONCE PRN NAUSEA/VOMITING Oxycodone/Acetaminophen (Percocet 5/325 Tab*) 1 tab PO Q4H PRN PAIN - MODERATE Oxycodone/Acetaminophen (Percocet 5/325 Tab*) 2 tab PO Q4H PRN PAIN - SEVERE Valsartan (Diovan Tab*) 320 mg PO DAILY [facility] Vital Signs - 8 hr 03/26/19 03/26/19 03/26/19 11:54 13:28 15:45 Temperature 98.5 F 97.9 F 98.1 F Pulse Rate 66 82 Respiratory 18 20 Rate Blood Pressure 135/77 158/85 (mmHg) O2 Sat by Pulse 94 94 Oximetry 03/26/19 03/26/19 03/26/19 15:48 15:50 15:51 Temperature 98.1 F Pulse Rate 77 71 Respiratory 10 16 Rate Blood Pressure 177/97 (mmHg) O2 Sat by Pulse 96 95 Oximetry 03/26/19 03/26/19 03/26/19 15:52 15:56 16:00 Temperature Pulse Rate 77 75 Respiratory 16 27 23 Rate Blood Pressure 183/94 (mmHg) O2 Sat by Pulse 92 91 Oximetry 03/26/19 03/26/19 03/26/19 16:01 16:06 16:11 Temperature Pulse Rate 78 68 72 Respiratory 19 16 Rate Blood Pressure 153/101 150/79 168/82 (mmHg) O2 Sat by Pulse 91 96 98 Oximetry 03/26/19 03/26/19 03/26/19 16:16 16:21 16:26 Temperature Pulse Rate 70 73 Respiratory 51 Rate Blood Pressure 164/86 163/79 161/87 (mmHg) O2 Sat by Pulse 97 95 Oximetry 03/26/19 03/26/19 03/26/19 16:28 16:31 16:40 Temperature Pulse Rate 70 Respiratory 16 16 Rate Blood Pressure 161/84 (mmHg) O2 Sat by Pulse 95 Oximetry 03/26/19 03/26/19 03/26/19 16:46 17:00 17:01 Temperature Pulse Rate 69 71 72 Respiratory 16 Rate Blood Pressure 168/91 130/74 (mmHg) O2 Sat by Pulse 95 92 93 Oximetry 03/26/19 03/26/19 17:47 18:11 Temperature 98.5 F Pulse Rate 70 Respiratory 16 16 Rate Blood Pressure 143/73 (mmHg) O2 Sat by Pulse 94 Oximetry Appearance: Middle-aged male sitting in bed in NAD Ears/Nose/Mouth/Throat: Mucous Membranes Moist Neck: NL Appearance and Movements; NL JVP, Trachea Midline Respiratory: Symmetrical Chest Expansion and Respiratory Effort, Clear to Auscultation Cardiovascular: NL Sounds; No Murmurs; No JVD, RRR Abdominal: NL Sounds; No Tenderness; No Distention Extremities: - - Moderate nonpitting RLE Skin: - - Dressing intact to RLE Neurological: Alert and Oriented x 3 Lines/Tubes/Other Access: Clean, Dry and Intact Peripheral IV Result Diagrams: 03/26/19 04:37 03/26/19 04:37 Assess/Plan/Problems-Billing Assessment: Mr. Stone is a 48 yo M with PMH of obesity, HTN, type 2 DM, and anxiety, who [facility] with diabetic foot infection and was admitted because of concern for infection, found to have osteomyelitis. - Patient Problems (1) Osteomyelitis of right foot Code(s): M86.9 - OSTEOMYELITIS, UNSPECIFIED Comment: - Started with right plantar burn in January and progresssed to a wound, now with abscess and osteomyelitis - MRI shows marrow signal alteration proximal phalanx of the third toe, consistent with osteomyelitis - Wound culture growing Staph aureus - Appreciate Ortho consult; plan for surgery today - Appreciate ID consult; recommends vanco, cefepime, Flagyl - Continue vancomycin, cefepime, Flagyl (2) Type 2 diabetes mellitus Comment: - Poorly controlled, A1c 9.6 - Glucose under moderately good control while in the hospital - Continue glimepiride, Lispro SS (3) HTN (hypertension) Code(s): I10 - ESSENTIAL (PRIMARY) HYPERTENSION Comment: - Normotensive, SBP 130-140s - Continue amlodipine, valsartan, HCTZ (4) HLD (hyperlipidemia) Code(s): E78.5 - HYPERLIPIDEMIA, UNSPECIFIED Comment: - Continue atorvastatin (5) Anxiety Code(s): F41.9 - ANXIETY DISORDER, UNSPECIFIED Comment: - Continue Buspar (6) DVT prophylaxis Code(s): Z29.9 - ENCOUNTER FOR PROPHYLACTIC MEASURES, UNSPECIFIED Comment: - Heparin SQ (7) Full code status Code(s): Z78.9 - OTHER SPECIFIED HEALTH STATUS Comment: Status and Disposition: Inpatient for osteomyelitis. Surgery today. Antibiotic course to be determined by ID. Attending: Juan José Harper
[2019-03-27] MEDS: oxyCODONE/Acetamin 5/325 MG* TAB PO PRN ×5 (02:11→22:47)
[2019-03-27] MEDS: Cefepime 1 GM in Dextrose(*) 1 GM/50 ML BAG IV SCH (02:12)
[2019-03-27] MEDS: Lactated Ringers 1000 ML Bag* 1,000 ML IV SCH ×3 (03:57→22:52)
[2019-03-27] MEDS: metroNIDAZOLE IV 500 MG/100ML* 500 MG/100 ML BAG IVPB SCH (05:24)
[2019-03-27] MEDS ORDERED: HYDROmorphone INJ* 0.5 MG/0.5 ML SYRINGE IV SLOW PU PRN (07:19)
[2019-03-27] MEDS ORDERED: oxyCODONE/Acetamin 5/325 MG* TAB PO PRN ×3 (07:20→07:26)
--- NOTE | 2019-03-27 07:26 | PN ---
Subjective Date of Service: 03/27/19 Interval History: Mr. Stone is feeling well this morning. He has had increased pain since surgery, but was expecting that. Pain is in the right foot, described as burning , nerve-like. This is somewhat well managed with Percocet, but not completely. He is allergic to morphine, but has responded well to Dilaudid in the past. He was up to the bathroom once overnight, NWB RLE, but has since been using the urinal. Denies CP, SOB, N/V. Appetite somewhat poor. No concerns from nursing. Family History: Unchanged from Admission Social History: Unchanged from Admission Past Medical History: Unchanged from Admission Objective Active Medications: Acetaminophen (Tylenol Tab*) 650 mg PO Q6H PRN MILD PAIN or TEMP > 100.4 Amlodipine Besylate (Norvasc Tab*) 10 mg PO DAILY [facility] Atorvastatin Calcium (Lipitor*) 10 mg PO DAILY [facility] Buspirone HCl (Buspar Tab*) 10 mg PO DAILY [facility] Dextrose (Dextrose 50% Vial 50 Ml*) 25 ml IV PUSH .FOR FS < 60 - SS PRN FS < 60 Diphenhydramine HCl (Benadryl Iv*) 25 mg IV Q6H PRN ITCHING Glimepiride (Glimepiride (Nf)) 1 mg PO DAILY [facility] Hydrochlorothiazide (Hydrodiuril Tab*) 25 mg PO DAILY [facility] Hydromorphone HCl (Dilaudid Inj*) 0.5 mg IV SLOW PU Q4H PRN PAIN - SEVERE Cefepime HCl (Maxipime 1 Gm In Dextrose Duplex (*)) 1 gm in 50 mls @ 100 mls/ hr IV Q12H [facility] Metronidazole/Sodium Chloride (Flagyl 500 Mg Ivpb*) 500 mg in 100 mls @ 100 mls /hr IVPB Q12H [facility] Lactated Ringer's (Lactated Ringers 1000 Ml Bag*) 1,000 mls @ 125 mls/hr IV PER RATE [facility] Insulin Human Lispro (Humalog*) 0 units SUBCUT 0730,1130,1630,2100 [facility]; Protocol Oxycodone/Acetaminophen (Percocet 5/325 Tab*) 2 tab PO Q4H PRN PAIN - MODERATE Oxycodone/Acetaminophen (Percocet 5/325 Tab*) 1 tab PO Q4H PRN PAIN - MILD Valsartan (Diovan Tab*) 320 mg PO DAILY [facility] Vital Signs - 8 hr 03/27/19 03/27/19 03/27/19 00:35 02:11 02:52 Temperature Pulse Rate Respiratory 18 18 Rate Blood Pressure (mmHg) O2 Sat by Pulse 93 Oximetry 03/27/19 03/27/19 04:04 06:14 Temperature 98.6 F Pulse Rate 86 Respiratory 18 18 Rate Blood Pressure 147/82 (mmHg) O2 Sat by Pulse 93 Oximetry Oxygen Devices in Use Now: None Appearance: Middle-aged male sitting in bed in NAD Ears/Nose/Mouth/Throat: Mucous Membranes Moist Neck: NL Appearance and Movements; NL JVP, Trachea Midline Respiratory: Symmetrical Chest Expansion and Respiratory Effort, Clear to Auscultation Cardiovascular: NL Sounds; No Murmurs; No JVD, RRR Abdominal: NL Sounds; No Tenderness; No Distention Extremities: No Edema Skin: - - Wound vac R foot Neurological: Alert and Oriented x 3 Lines/Tubes/Other Access: Clean, Dry and Intact Peripheral IV Nutrition: Taking PO's Result Diagrams: 03/26/19 04:37 03/26/19 04:37 Assess/Plan/Problems-Billing Assessment: Mr. Stone is a 48 yo M with PMH of obesity, HTN, type 2 DM, and anxiety, who presented to [facility] with diabetic foot infection and was admitted because of concern for infection, found to have osteomyelitis. - Patient Problems (1) Osteomyelitis of right foot Code(s): M86.9 - OSTEOMYELITIS, UNSPECIFIED Comment: - POD #1 - Started with right plantar burn in January and progresssed to a wound, now with abscess and osteomyelitis - MRI shows marrow signal alteration proximal phalanx of the third toe, consistent with osteomyelitis - Wound culture growing Staph aureus - Appreciate Ortho consult - Appreciate ID consult; recommends vanco, cefepime, Flagyl - Continue vancomycin, cefepime, Flagyl (2) Type 2 diabetes mellitus Comment: - Poorly controlled, A1c 9.6 - Glucose under moderately good control while in the hospital - Continue glimepiride, Lispro SS (3) HTN (hypertension) Code(s): I10 - ESSENTIAL (PRIMARY) HYPERTENSION Comment: - Normotensive, SBP 140s - Continue amlodipine, valsartan, HCTZ (4) HLD (hyperlipidemia) Code(s): E78.5 - HYPERLIPIDEMIA, UNSPECIFIED Comment: - Continue atorvastatin (5) Anxiety Code(s): F41.9 - ANXIETY DISORDER, UNSPECIFIED Comment: - Continue Buspar (6) DVT prophylaxis Code(s): Z29.9 - ENCOUNTER FOR PROPHYLACTIC MEASURES, UNSPECIFIED Comment: - SCDs (7) Full code status Code(s): Z78.9 - OTHER SPECIFIED HEALTH STATUS Comment: Status and Disposition: Inpatient for osteomyelitis. Antibiotic course to be determined by ID. Anticipate d/c home when cleared by ID and Ortho. Attending: Fernanda Reeder
[2019-03-27] MEDS: Atorvastatin* 10 MG TAB PO SCH (07:39)
[2019-03-27] MEDS: amLODIPine TAB* 5 MG PO SCH (07:39)
[2019-03-27] MEDS: Valsartan TAB* 160 MG PO SCH (07:39)
[2019-03-27] MEDS: busPIRone TAB* 10 MG PO SCH (07:40)
[2019-03-27] MEDS: Hydrochlorothiazide TAB* 25 MG PO SCH (07:40)
[2019-03-27] MEDS: HYDROmorphone INJ* 0.5 MG/0.5 ML SYRINGE IV SLOW PU PRN (07:40)
[2019-03-27] MEDS: hydrALAZINE IV* 20 MG/ML VIAL IV SLOW PU PRN ×2 (07:40→20:50)
[2019-03-27] MEDS: CMC:Glimepiride (NF) 2 MG TAB PO SCH (07:41)
[2019-03-27] MEDS ORDERED: Nicotine Patch Removal NOTE PATCH OFF ONE (08:59)
[2019-03-27] MEDS: Insulin LISPRO* 1 UNITS UNIT SUBCUT SCH ×4 (09:24→22:49)
--- NOTE | 2019-03-27 10:22 | OP ---
DATE OF OPERATION: 03/26/19 - ROOM #334 DATE OF : 68 SURGEON: Scot An MD [employer] INSPECTOR: Simona Rich PA-C. PRE-OP DIAGNOSIS: Osteomyelitis, right third toe and right third metatarsal. POST-OP DIAGNOSIS: Osteomyelitis, right third toe and right third metatarsal. OPERATIVE PROCEDURE: Right third ray amputation. DESCRIPTION OF PROCEDURE: The patient was taken to the operating room where a longitudinal incision was made over the dorsum of the third metatarsal. There was gross purulence encountered as well as some necrotic soft tissue. We dissected around the third metatarsal up to its base, which was disarticulated with a 15 blade. Also we dissected then in a circumferential aspect at the base of the third toe, thus amputating the third toe with the third metatarsal. The soft tissues were debrided with 10 blade, irrigated with 3 L pulsatile lavage. We fashioned a VAC sponge to fit the defect, sealing this with Ioban dressing. Local hemostasis obtained before the VAC placement and culture sent. [id number]/[facility] #: [id number] ROBB
--- NOTE | 2019-03-27 10:59 | PN ---
Progress Note - Progress Note Date of Service: 03/27/19 SOAP: Subjective: CC: Right foot infection HPI: Mr. Stone is a 58 yo male with PMH significant for DM2, morbid obesity , HTN, and anxiety; who presented to the hospital for right foot infection. Denies fever, chills, shortness of breath, nausea, vomiting, or diarrhea. He reports pain in his right foot that is improved with pain medication. Objective: Vital Signs - 8 hr 03/27/19 03/27/19 03/27/19 04:04 06:14 07:22 Temperature 98.6 F 98.5 F Pulse Rate 86 76 Respiratory 18 18 16 Rate Blood Pressure 147/82 174/89 (mmHg) O2 Sat by Pulse 93 95 Oximetry Physical Exam: General: NAD, sitting up in bed Neurological: Alert and Oriented HEENT: Moist MM, no thrush Cardiovascular: Heart rate regular Respiratory: Lung sound clear bilateral Abdominal: Bowel sounds present; ABD soft, non tender and large Skin: Surgical dressing to right foot intact with wound vac Laboratory Last Values WBC 8.1 10^3/uL (3.5-10.8) 03/26/19 04:37 RBC 4.71 10^6 /uL (4.18-5.48) 03/26/19 04:37 Hgb 13.5 g/dL (14.0-18.0) L 03/26/19 04:37 Hct 40 % (42-52) L 03/26/19 04:37 MCV 84 fL (80-94) 03/26/19 04:37 MCH 29 pg (27-31) 03/26/19 04:37 MCHC 34 g/dL (31-36) 03/26/19 04:37 RDW 14 % (10-15) 03/26/19 04:37 Plt Count 361 10^3/uL (150-450) 03/26/19 04:37 MPV 8.0 fL (7.4-10.4) 03/26/19 04:37 Neut % (Auto) 69.3 % 03/26/19 04:37 Lymph % (Auto) 22.0 % 03/26/19 04:37 [place] % (Auto) 6.4 % 03/26/19 04:37 Eos % (Auto) 1.9 % 03/26/19 04:37 Baso % (Auto) 0.4 % 03/26/19 04:37 Absolute Neuts (auto) 5.6 10^3/ul (1.5-7.7) 03/26/19 04:37 Absolute Lymphs (auto) 1.8 10^3/ul (1.0-4.8) 03/26/19 04:37 Absolute Monos (auto) 0.5 10^3/ul (0-0.8) 03/26/19 04:37 Absolute Eos (auto) 0.2 10^3/ul (0-0.6) 03/26/19 04:37 Absolute Basos (auto) 0.0 10^3/ul (0-0.2) 03/26/19 04:37 Absolute Nucleated RBC 0.0 10^3/ul 03/26/19 04:37 Nucleated RBC % 0.0 03/26/19 04:37 ESR 80 mm/Hr (0-14) H 03/23/19 12:00 INR (Anticoag Therapy) 1.21 (0.82-1.09) H 03/26/19 04:37 Sodium 135 mmol/L (135-145) 03/26/19 04:37 Potassium 4.2 mmol/L (3.5-5.0) 03/26/19 04:37 Chloride 98 mmol/L (101-111) L 03/26/19 04:37 Carbon Dioxide 30 mmol/L (22-32) 03/26/19 04:37 Anion Gap 7 mmol/L (2-11) 03/26/19 04:37 BUN 13 mg/dL (6-24) 03/26/19 04:37 Creatinine 0.86 mg/dL (0.67-1.17) 03/26/19 04:37 Est GFR ( Amer) 114.4 (>60) 03/26/19 04:37 Est GFR (Non-Af Amer) 94.5 (>60) 03/26/19 04:37 BUN/Creatinine Ratio 15.1 (8-20) 03/26/19 04:37 Glucose 142 mg/dL (70-100) H 03/26/19 04:37 POC Glucose (mg/dL) 155 mg/dL (70-100) H 03/27/19 07:23 Hemoglobin A1c 9.6 % (4.0-5.6) H 03/23/19 12:00 Calcium 9.1 mg/dL (8.6-10.3) 03/26/19 04:37 Total Bilirubin 0.50 mg/dL (0.2-1.0) 03/23/19 12:00 AST 21 U/L (13-39) 03/23/19 12:00 ALT 33 U/L (7-52) 03/23/19 12:00 Alkaline Phosphatase 93 U/L (34-104) 03/23/19 12:00 C-Reactive Protein 67.03 mg/L (<8.01) H 03/25/19 05:46 Total Protein 6.9 g/dL (6.4-8.9) 03/23/19 12:00 Albumin 3.6 g/dL (3.2-5.2) 03/23/19 12:00 Globulin 3.3 g/dL (2-4) 03/23/19 12:00 Albumin/Globulin Ratio 1.1 (1-3) 03/23/19 12:00 Vancomycin Trough 12.0 mcg/mL 03/26/19 04:37 Microbiology 03/26/19 14:59 Anaerobic Culture - Preliminary Wound No Growth Day 1 03/26/19 14:59 Gram Stain - Final Foot Right Wound Culture - Preliminary No Growth Day 1 03/23/19 11:10 Gram Stain - Final Foot Right Wound Culture - Final Staphylococcus Aureus Normal [place] Assessment: 1. Right 3rd toe and metatarsal acute osteomyelitis. MRI with plantar ulcer below 2nd and 3rd metatarsal heads with cellulitis, abscess, tenosynovitis, osteomyelitis. S/P right 3rd ray amputation, POD #1. Has been on vancomycin, cefepime, and flagyl while here. Wound culture with staph aureus. Repeat culture from the OR with no growth on day 1. Afebrile and no leukocytosis. 2. DM2 with peripheral neuropathy. 3. Morbid obesity. BMI 4. PCN allergy. Caused nausea. Plan: Discontinue cefepime and flagyl. Start Ancef 2 gm IV Q8H. Will need 4-6 weeks of IV ABX, day 1. Will get PICC line placed. For discharge will transition to Ancef 6gm IV continuous. Will need weekly labs while on IV ABX: CBC, CMP, and CRP. 25 minutes floor time: > 50% face to face in counseling with the patient regarding ABX treatment and possible side effects.
--- NOTE | 2019-03-27 13:32 | PN ---
Progress Note - Progress Note Date of Service: 03/27/19 SOAP: Subjective: []Pt seen at bedside. He feels well without complaints. Denies CP, SOB, dizziness, nausea, fever or chills. Objective: []Gen: Appears well, NAD RLE: Vac suction functioning well, dressing CDI, no erythema proximal or distal. Able to f/e MTPs, decreased sensation distally which is baseline, cap refill less than 2 seconds distally. Calves supple and nontender Assessment: []Osteomyelitis, right third toe and right third metatarsal. POD 1 sp Right third ray amputation. Cx from 03/23 growing MSSA, intraop cx with no growth to date Plan: []NWB RLE Keep dressing CDI Continue wound vac, needs vac sponge changed q 3 days ABX plan per ID: Discontinue cefepime and flagyl. Start Ancef 2 gm IV Q8H. Will need 4-6 weeks of IV ABX. Will get PICC line placed. For discharge will transition to Ancef 6gm IV continuous. Will need weekly labs while on IV ABX: CBC, CMP, and CRP. Plans to DC home when Picc line placed/ abx teaching done/ ins auth for home vs infusion center Vital Signs Temp 98.1 F 03/27/19 11:15 Pulse 82 03/27/19 11:15 Resp 16 03/27/19 11:57 BP 153/76 03/27/19 11:15 Pulse Ox 91 03/27/19 11:15 Intake & Output 03/26/19 03/27/19 03/27/19 18:59 06:59 18:59 Intake Total 950 2784 Output Total 225 1600 1000 Balance 725 1184 -1000 Weight 251 lb 5.231 oz Intake: IV Fluids 950 1109 ABX - CEFEPIME 55 ABX - FLAGYL 104 CEFEPIME 1GM IV 50 LR 900 950 IVPB 55 ABX - CEFEPIME 55 Oral 1620 Output: Urine 225 1600 1000 Other: Estimated Void Large # Voids 1 Laboratory Last Values WBC 8.1 10^3/uL (3.5-10.8) 03/26/19 04:37 RBC 4.71 10^6 /uL (4.18-5.48) 03/26/19 04:37 Hgb 13.5 g/dL (14.0-18.0) L 03/26/19 04:37 Hct 40 % (42-52) L 03/26/19 04:37 MCV 84 fL (80-94) 03/26/19 04:37 MCH 29 pg (27-31) 03/26/19 04:37 MCHC 34 g/dL (31-36) 03/26/19 04:37 RDW 14 % (10-15) 03/26/19 04:37 Plt Count 361 10^3/uL (150-450) 03/26/19 04:37 MPV 8.0 fL (7.4-10.4) 03/26/19 04:37 Neut % (Auto) 69.3 % 03/26/19 04:37 Lymph % (Auto) 22.0 % 03/26/19 04:37 [place] % (Auto) 6.4 % 03/26/19 04:37 Eos % (Auto) 1.9 % 03/26/19 04:37 Baso % (Auto) 0.4 % 03/26/19 04:37 Absolute Neuts (auto) 5.6 10^3/ul (1.5-7.7) 03/26/19 04:37 Absolute Lymphs (auto) 1.8 10^3/ul (1.0-4.8) 03/26/19 04:37 Absolute Monos (auto) 0.5 10^3/ul (0-0.8) 03/26/19 04:37 Absolute Eos (auto) 0.2 10^3/ul (0-0.6) 03/26/19 04:37 Absolute Basos (auto) 0.0 10^3/ul (0-0.2) 03/26/19 04:37 Absolute Nucleated RBC 0.0 10^3/ul 03/26/19 04:37 Nucleated RBC % 0.0 03/26/19 04:37 ESR 80 mm/Hr (0-14) H 03/23/19 12:00 INR (Anticoag Therapy) 1.21 (0.82-1.09) H 03/26/19 04:37 Sodium 135 mmol/L (135-145) 03/26/19 04:37 Potassium 4.2 mmol/L (3.5-5.0) 03/26/19 04:37 Chloride 98 mmol/L (101-111) L 03/26/19 04:37 Carbon Dioxide 30 mmol/L (22-32) 03/26/19 04:37 Anion Gap 7 mmol/L (2-11) 03/26/19 04:37 BUN 13 mg/dL (6-24) 03/26/19 04:37 Creatinine 0.86 mg/dL (0.67-1.17) 03/26/19 04:37 Est GFR ( Amer) 114.4 (>60) 03/26/19 04:37 Est GFR (Non-Af Amer) 94.5 (>60) 03/26/19 04:37 BUN/Creatinine Ratio 15.1 (8-20) 03/26/19 04:37 Glucose 142 mg/dL (70-100) H 03/26/19 04:37 POC Glucose (mg/dL) 163 mg/dL (70-100) H 03/27/19 11:53 Hemoglobin A1c 9.6 % (4.0-5.6) H 03/23/19 12:00 Calcium 9.1 mg/dL (8.6-10.3) 03/26/19 04:37 Total Bilirubin 0.50 mg/dL (0.2-1.0) 03/23/19 12:00 AST 21 U/L (13-39) 03/23/19 12:00 ALT 33 U/L (7-52) 03/23/19 12:00 Alkaline Phosphatase 93 U/L (34-104) 03/23/19 12:00 C-Reactive Protein 67.03 mg/L (<8.01) H 03/25/19 05:46 Total Protein 6.9 g/dL (6.4-8.9) 03/23/19 12:00 Albumin 3.6 g/dL (3.2-5.2) 03/23/19 12:00 Globulin 3.3 g/dL (2-4) 03/23/19 12:00 Albumin/Globulin Ratio 1.1 (1-3) 03/23/19 12:00 Vancomycin Trough 12.0 mcg/mL 03/26/19 04:37
[2019-03-27] MEDS: ceFAZolin 2 GM PREMIX in ORs 2 GM/50 ML BAG IVPB SCH ×2 (13:56→22:50)
[2019-03-27] MEDS ORDERED: Nicotine Patch Removal NOTE PATCH OFF SCH (21:00)
[2019-03-28] MEDS: ceFAZolin 2 GM PREMIX in ORs 2 GM/50 ML BAG IVPB SCH ×3 (06:00→21:40)
[2019-03-28] MEDS: oxyCODONE/Acetamin 5/325 MG* TAB PO PRN ×3 (07:05→19:30)
[2019-03-28] MEDS: Lactated Ringers 1000 ML Bag* 1,000 ML IV SCH (08:27)
[2019-03-28] MEDS: busPIRone TAB* 10 MG PO SCH (09:28)
[2019-03-28] MEDS: Hydrochlorothiazide TAB* 25 MG PO SCH (09:28)
[2019-03-28] MEDS: Valsartan TAB* 160 MG PO SCH (09:29)
[2019-03-28] MEDS: amLODIPine TAB* 5 MG PO SCH (09:29)
[2019-03-28] MEDS: Atorvastatin* 10 MG TAB PO SCH (09:29)
[2019-03-28] MEDS: CMC:Glimepiride (NF) 2 MG TAB PO SCH (09:33)
[2019-03-28] MEDS: Insulin LISPRO* 1 UNITS UNIT SUBCUT SCH ×4 (09:35→21:42)
[2019-03-28] MEDS ORDERED: Buffered Lidocaine 1% SYRIN* 1 ML/SYRINGE INTRADERM ONE (10:44)
[2019-03-28 11:21] LABS: ABS Basophils 0.1 10^3/ul (0-0.2); ABS Eosinophils 0.1 10^3/ul (0-0.6); ABS Lymphocytes 1.9 10^3/ul (1.0-4.8); ABS Monocytes 0.5 10^3/ul (0-0.8); ABS Neutrophils 8.1 10^3/ul (1.5-7.7); Eosinophil % 1.1 %; Hematocrit 41 % (42-52); Hemoglobin 13.5 g/dL (14.0-18.0); Lymphocyte % 17.8 %; Mean Corpuscular HGB Conc 34 g/dL (31-36); Mean Corpuscular Hemoglobin 29 pg (27-31); Mean Corpuscular Volume 86 fL (80-94); Mean Platelet Volume 8.2 fL (7.4-10.4); Platelet Count 378 10^3/uL (150-450); Red Blood Count 4.71 10^6 /uL (4.18-5.48); Red Cell Distribution Width 14 % (10-15); White Blood Count 10.7 10^3/uL (3.5-10.8)
[2019-03-28 11:45] LABS: Blood Urea Nitrogen 8 mg/dL (6-24); CO2 Carbon Dioxide 32 mmol/L (22-32); Calcium 9.4 mg/dL (8.6-10.3); Chloride 97 mmol/L (101-111); EGFR African American 124.3 (>60); EGFR Non-African American 102.7 (>60); Glucose 204 mg/dL (70-100); Sodium 135 mmol/L (135-145)
[2019-03-28 12:45] LABS: Anion Gap 6 mmol/L (2-11)
--- NOTE | 2019-03-28 13:01 | PN ---
Progress Note - Progress Note Date of Service: 03/28/19 SOAP: Subjective: []Pt seen at bedside. He is feeling well without complaints. Denies CP, SOB, dizziness, nausea, fever or chills. Objective: []Gen: Appears well, NAD RLE: Vac suction functioning well, dressing CDI, no erythema proximal or distal. Able to f/e MTPs, decreased sensation distally which is baseline, cap refill less than 2 seconds distally. Calves supple and nontender Assessment: []Osteomyelitis, right third toe and right third metatarsal. POD 2 sp Right third ray amputation. Cx from 03/23 growing MSSA, intraop cx with no growth to date Plan: []NWB RLE Keep dressing CDI Continue wound vac, will go to the OR tomorrow with Dr Blanco for repeat I&D and vac change vs wound closure. ABX plan per ID: Ancef 2 gm IV Q8H. Will need 4-6 weeks of IV ABX. Will get PICC line placed. For discharge will transition to Ancef 6gm IV continuous. Will need weekly labs while on IV ABX: CBC, CMP, and CRP. Vital Signs Temp 98.0 F 03/28/19 11:40 Pulse 71 03/28/19 11:40 Resp 20 03/28/19 12:58 BP 144/65 03/28/19 11:40 Pulse Ox 99 03/28/19 11:40 Intake & Output 03/27/19 03/28/19 03/28/19 18:59 06:59 18:59 Intake Total 1819 1791 1195 Output Total 1900 1920 800 Balance -81 -129 395 Intake: IV Fluids 313 910 9341 LR 025 922 5497 IVPB 105 100 55 ABX - CEFAZOLIN 100 55 ABX - FLAGYL 105 Oral 720 700 Output: Urine 1900 1920 800 Other: # Bowel Movements 1 Estimated Stool Amount Medium Laboratory Last Values WBC 10.7 10^3/uL (3.5-10.8) 03/28/19 11:05 RBC 4.71 10^6 /uL (4.18-5.48) 03/28/19 11:05 Hgb 13.5 g/dL (14.0-18.0) L 03/28/19 11:05 Hct 41 % (42-52) L 03/28/19 11:05 MCV 86 fL (80-94) 03/28/19 11:05 MCH 29 pg (27-31) 03/28/19 11:05 MCHC 34 g/dL (31-36) 03/28/19 11:05 RDW 14 % (10-15) 03/28/19 11:05 Plt Count 378 10^3/uL (150-450) 03/28/19 11:05 MPV 8.2 fL (7.4-10.4) 03/28/19 11:05 Neut % (Auto) 75.6 % 03/28/19 11:05 Lymph % (Auto) 17.8 % 03/28/19 11:05 [place] % (Auto) 4.6 % 03/28/19 11:05 Eos % (Auto) 1.1 % 03/28/19 11:05 Baso % (Auto) 0.9 % 03/28/19 11:05 Absolute Neuts (auto) 8.1 10^3/ul (1.5-7.7) H 03/28/19 11:05 Absolute Lymphs (auto) 1.9 10^3/ul (1.0-4.8) 03/28/19 11:05 Absolute Monos (auto) 0.5 10^3/ul (0-0.8) 03/28/19 11:05 Absolute Eos (auto) 0.1 10^3/ul (0-0.6) 03/28/19 11:05 Absolute Basos (auto) 0.1 10^3/ul (0-0.2) 03/28/19 11:05 Absolute Nucleated RBC 0.0 10^3/ul 03/28/19 11:05 Nucleated RBC % 0.0 03/28/19 11:05 ESR 80 mm/Hr (0-14) H 03/23/19 12:00 INR (Anticoag Therapy) 1.21 (0.82-1.09) H 03/26/19 04:37 Sodium 135 mmol/L (135-145) 03/28/19 11:05 Potassium TNP 03/28/19 11:05 Chloride 97 mmol/L (101-111) L 03/28/19 11:05 Carbon Dioxide 32 mmol/L (22-32) 03/28/19 11:05 Anion Gap 6 mmol/L (2-11) 03/28/19 11:05 BUN 8 mg/dL (6-24) 03/28/19 11:05 Creatinine 0.80 mg/dL (0.67-1.17) 03/28/19 11:05 Est GFR ( Amer) 124.3 (>60) 03/28/19 11:05 Est GFR (Non-Af Amer) 102.7 (>60) 03/28/19 11:05 BUN/Creatinine Ratio 10.0 (8-20) 03/28/19 11:05 Glucose 204 mg/dL (70-100) H 03/28/19 11:05 POC Glucose (mg/dL) 191 mg/dL (70-100) H 03/28/19 12:27 Hemoglobin A1c 9.6 % (4.0-5.6) H 03/23/19 12:00 Calcium 9.4 mg/dL (8.6-10.3) 03/28/19 11:05 Total Bilirubin 0.50 mg/dL (0.2-1.0) 03/23/19 12:00 AST 21 U/L (13-39) 03/23/19 12:00 ALT 33 U/L (7-52) 03/23/19 12:00 Alkaline Phosphatase 93 U/L (34-104) 03/23/19 12:00 C-Reactive Protein 67.03 mg/L (<8.01) H 03/25/19 05:46 Total Protein 6.9 g/dL (6.4-8.9) 03/23/19 12:00 Albumin 3.6 g/dL (3.2-5.2) 03/23/19 12:00 Globulin 3.3 g/dL (2-4) 03/23/19 12:00 Albumin/Globulin Ratio 1.1 (1-3) 03/23/19 12:00 Vancomycin Trough 12.0 mcg/mL 03/26/19 04:37
--- NOTE | 2019-03-28 17:59 | PN ---
Subjective Date of Service: 03/28/19 Interval History: Patient seen and examined. Having PICC line placed. Denies pain, no SOB, no chest pain. Denies fever or chills. States he feels output on wound vac is decreasing. Otherwise no complaints. Family History: Unchanged from Admission Social History: Unchanged from Admission Past Medical History: Unchanged from Admission Objective Active Medications: Acetaminophen (Tylenol Tab*) 650 mg PO Q6H PRN PRN Reason: MILD PAIN or TEMP > 100.4 Amlodipine Besylate (Norvasc Tab*) 10 mg PO DAILY [facility] Last Admin: 03/28/19 09:29 Dose: 10 mg Atorvastatin Calcium (Lipitor*) 10 mg PO DAILY [facility] Last Admin: 03/28/19 09:29 Dose: 10 mg Buspirone HCl (Buspar Tab*) 10 mg PO DAILY [facility] Last Admin: 03/28/19 09:28 Dose: 10 mg Dextrose (Dextrose 50% Vial 50 Ml*) 25 ml IV PUSH .FOR FS < 60 - SS PRN PRN Reason: FS < 60 Diphenhydramine HCl (Benadryl Iv*) 25 mg IV Q6H PRN PRN Reason: ITCHING Last Admin: 03/24/19 09:02 Dose: 25 mg Glimepiride (Glimepiride (Nf)) 1 mg PO DAILY [facility] Last Admin: 03/28/19 09:33 Dose: 1 mg Heparin Sodium (Porcine) (Heparin Flush Picc/Ml/Cvc(*)) 1 - 3 ml FLUSH 0600, 1800 [facility]; Protocol Last Admin: 03/28/19 17:39 Dose: 1 ml Hydralazine HCl (Apresoline Iv*) 5 mg IV SLOW PU Q6H PRN PRN Reason: Systolic Bp Greater Than: 160 Last Admin: 03/27/19 20:50 Dose: 5 mg Hydrochlorothiazide (Hydrodiuril Tab*) 25 mg PO DAILY [facility] Last Admin: 03/28/19 09:28 Dose: 25 mg Hydromorphone HCl (Dilaudid Inj*) 0.5 mg IV SLOW PU Q4H PRN PRN Reason: Pain - Unrelieved Last Admin: 03/27/19 07:40 Dose: 0.5 mg Lactated Ringer's (Lactated Ringers 1000 Ml Bag*) 1,000 mls @ 125 mls/hr IV PER RATE [facility] Last Admin: 03/28/19 08:27 Dose: 125 mls/hr Cefazolin Sodium/Dextrose (Kefzol 2 Gm Premix In Ors(*)) 2 gm in 50 mls @ 100 mls/hr IVPB Q8H [facility] Last Admin: 03/28/19 13:36 Dose: 100 mls/hr Insulin Human Lispro (Humalog*) 0 units SUBCUT 0730,1130,1630,2100 [facility]; Protocol Last Admin: 03/28/19 17:38 Dose: 12 units Oxycodone/Acetaminophen (Percocet 5/325 Tab*) 1 tab PO Q4H PRN PRN Reason: PAIN - MODERATE Oxycodone/Acetaminophen (Percocet 5/325 Tab*) 2 tab PO Q4H PRN PRN Reason: PAIN - SEVERE Last Admin: 03/28/19 12:58 Dose: 2 tab Valsartan (Diovan Tab*) 320 mg PO DAILY [facility] Last Admin: 03/28/19 09:29 Dose: 320 mg Vital Signs - 8 hr 03/28/19 03/28/19 03/28/19 11:40 12:58 16:08 Temperature 98.0 F 98.1 F Pulse Rate 71 72 Respiratory 16 20 20 Rate Blood Pressure 144/65 145/65 (mmHg) O2 Sat by Pulse 99 99 Oximetry 03/28/19 16:25 Temperature Pulse Rate Respiratory 18 Rate Blood Pressure (mmHg) O2 Sat by Pulse Oximetry Oxygen Devices in Use Now: None Appearance: alert, NAD Eyes: PERRLA Ears/Nose/Mouth/Throat: NL Teeth, Lips, Gums, Mucous Membranes Moist Neck: NL Appearance and Movements; NL JVP, Trachea Midline Respiratory: Symmetrical Chest Expansion and Respiratory Effort, Clear to Auscultation Cardiovascular: NL Sounds; No Murmurs; No JVD, RRR Abdominal: NL Sounds; No Tenderness; No Distention Extremities: No Edema, - - right foot wound vac dressing CDI Neurological: Alert and Oriented x 3 Nutrition: Taking PO's Result Diagrams: 03/28/19 11:05 03/28/19 13:56 Microbiology and Other Data: Microbiology 03/23/19 11:10 Gram Stain - Final Foot Right Assess/Plan/Problems-Billing Assessment: Mr. Stone is a 48 yo M with PMH of obesity, HTN, type 2 DM, and anxiety, who presented to [facility] with diabetic foot infection and was admitted because of concern for infection, found to have osteomyelitis. - Patient Problems (1) Osteomyelitis of right foot Code(s): M86.9 - OSTEOMYELITIS, UNSPECIFIED SNOMED Code(s): 2152575995178280 Comment: - POD2, plan for OR again tomorrow for closure versus wound vac change - Started with right plantar burn in January and progresssed to a wound, now with abscess and osteomyelitis - MRI shows marrow signal alteration proximal phalanx of the third toe, consistent with osteomyelitis - Wound culture growing Staph aureus - Appreciate Ortho consult - Appreciate ID consult; recommends vanco, cefepime, Flagyl - Continue vancomycin, cefepime, Flagyl - PICC line placed today (2) Anxiety Code(s): F41.9 - ANXIETY DISORDER, UNSPECIFIED SNOMED Code(s): 27186346 Comment: - Continue Buspar (3) HTN (hypertension) Code(s): I10 - ESSENTIAL (PRIMARY) HYPERTENSION SNOMED Code(s): 91046072 Comment: - Normotensive, SBP 140s - Continue amlodipine, valsartan, HCTZ (4) Type 2 diabetes mellitus Comment: - Poorly controlled, A1c 9.6 with high sugars in setting of infection - Continue glimepiride, Lispro SS (5) DVT prophylaxis Code(s): Z29.9 - ENCOUNTER FOR PROPHYLACTIC MEASURES, UNSPECIFIED SNOMED Code( s): 006751955 Comment: - SCDs (6) Full code status Code(s): Z78.9 - OTHER SPECIFIED HEALTH STATUS SNOMED Code(s): 894218007 Comment: Status and Disposition: Inpatient for osteomyelitis. Antibiotic course to be determined by ID. Anticipate d/c home when cleared by ID and Ortho.
[2019-03-29 05:22] LABS: ABS Eosinophils 0.2 10^3/ul (0-0.6); ABS Lymphocytes 1.7 10^3/ul (1.0-4.8); ABS Monocytes 0.5 10^3/ul (0-0.8); ABS Neutrophils 6.2 10^3/ul (1.5-7.7); Eosinophil % 1.8 %; Hematocrit 37 % (42-52); Hemoglobin 12.2 g/dL (14.0-18.0); Lymphocyte % 19.2 %; Mean Corpuscular HGB Conc 33 g/dL (31-36); Mean Corpuscular Hemoglobin 28 pg (27-31); Mean Corpuscular Volume 85 fL (80-94); Mean Platelet Volume 7.9 fL (7.4-10.4); Platelet Count 338 10^3/uL (150-450); Red Blood Count 4.33 10^6 /uL (4.18-5.48); Red Cell Distribution Width 14 % (10-15); White Blood Count 8.6 10^3/uL (3.5-10.8)
[2019-03-29 05:44] LABS: BUN/Creatinine Ratio 9.7 (8-20); EGFR African American 140.4 (>60); Potassium 3.8 mmol/L (3.5-5.0)
[2019-03-29] MEDS: ceFAZolin 2 GM PREMIX in ORs 2 GM/50 ML BAG IVPB SCH ×2 (05:51→13:46)
[2019-03-29] MEDS: oxyCODONE/Acetamin 5/325 MG* TAB PO PRN ×3 (05:56→20:41)
[2019-03-29] MEDS: amLODIPine TAB* 5 MG PO SCH (08:45)
[2019-03-29] MEDS: busPIRone TAB* 10 MG PO SCH (08:45)
[2019-03-29] MEDS: Atorvastatin* 10 MG TAB PO SCH (08:46)
[2019-03-29] MEDS: Hydrochlorothiazide TAB* 25 MG PO SCH (08:46)
[2019-03-29] MEDS: Insulin LISPRO* 1 UNITS UNIT SUBCUT SCH ×4 (08:48→21:04)
[2019-03-29] MEDS: Valsartan TAB* 160 MG PO SCH (08:49)
[2019-03-29] MEDS: CMC:Glimepiride (NF) 2 MG TAB PO SCH (08:49)
[2019-03-29] MEDS ORDERED: ceFAZolin 2 GM PREMIX in ORs 2 GM/50 ML BAG ONE (13:44)
[2019-03-29] MEDS ORDERED: Bupivacaine 0.5%* 50 ML MDV VIAL ONE (13:52)
[2019-03-29] MEDS ORDERED: Lidocaine 1% INJ* 10 MG/ML 30 ML SDV ONE (13:52)
[2019-03-29] MEDS ORDERED: Naloxone* 0.4 MG/ML 1 ML VIAL IV PRN ×2 (14:03→15:33)
[2019-03-29] MEDS ORDERED: fentaNYL* 50 MCG/ML 2 ML VIAL (100 MCG VIAL) ONE ×3 (14:10→15:36)
[2019-03-29] MEDS ORDERED: Midazolam* 1 MG/ML 2 ML VIAL (2 MG) ONE (14:10)
[2019-03-29] MEDS ORDERED: Propofol* 10 MG/ML 20 ML BTL ONE (14:20)
[2019-03-29] MEDS: fentaNYL* 50 MCG/ML 2 ML VIAL (100 MCG VIAL) IV PRN ×3 (15:09→15:40)
--- NOTE | 2019-03-29 15:33 | PN ---
Subjective Date of Service: 03/29/19 Interval History: Patient seen and examined. States she slept well last night, pending OR this afternoon for additional washout and potential closure today. Denies fevers or chills, no SOB, no cough, no chest pain. States pain in foot is intermittent but otherwise well controlled. No further events noted. Family History: Unchanged from Admission Social History: Unchanged from Admission Past Medical History: Unchanged from Admission Objective Active Medications: Acetaminophen (Tylenol Tab*) 650 mg PO Q6H PRN PRN Reason: MILD PAIN or TEMP > 100.4 Amlodipine Besylate (Norvasc Tab*) 10 mg PO DAILY [facility] Last Admin: 03/29/19 08:45 Dose: 10 mg Atorvastatin Calcium (Lipitor*) 10 mg PO DAILY [facility] Last Admin: 03/29/19 08:46 Dose: 10 mg Buspirone HCl (Buspar Tab*) 10 mg PO DAILY [facility] Last Admin: 03/29/19 08:45 Dose: 10 mg Dextrose (Dextrose 50% Vial 50 Ml*) 25 ml IV PUSH .FOR FS < 60 - SS PRN PRN Reason: FS < 60 Diphenhydramine HCl (Benadryl Iv*) 25 mg IV Q6H PRN PRN Reason: ITCHING Last Admin: 03/24/19 09:02 Dose: 25 mg Glimepiride (Glimepiride (Nf)) 1 mg PO DAILY [facility] Last Admin: 03/29/19 08:49 Dose: Not Given Heparin Sodium (Porcine) (Heparin Flush Picc/Ml/Cvc(*)) 1 - 3 ml FLUSH 0600, 1800 [facility]; Protocol Last Admin: 03/29/19 07:13 Dose: 1 ml Hydralazine HCl (Apresoline Iv*) 5 mg IV SLOW PU Q6H PRN PRN Reason: Systolic Bp Greater Than: 160 Last Admin: 03/27/19 20:50 Dose: 5 mg Hydrochlorothiazide (Hydrodiuril Tab*) 25 mg PO DAILY [facility] Last Admin: 03/29/19 08:46 Dose: 25 mg Hydromorphone HCl (Dilaudid Inj*) 0.5 mg IV SLOW PU Q4H PRN PRN Reason: Pain - Unrelieved Last Admin: 03/27/19 07:40 Dose: 0.5 mg Lactated Ringer's (Lactated Ringers 1000 Ml Bag*) 1,000 mls @ 125 mls/hr IV PER RATE [facility] Last Admin: 03/28/19 08:27 Dose: 125 mls/hr Cefazolin Sodium/Dextrose (Kefzol 2 Gm Premix In Ors(*)) 2 gm in 50 mls @ 100 mls/hr IVPB Q8H [facility] Stop: 03/29/19 21:59 Last Admin: 03/29/19 13:46 Dose: Not Given Cefazolin Sodium 2 gm/ Sodium (Chloride) 100 mls @ 200 mls/hr IVPB Q8H [facility] Insulin Human Lispro (Humalog*) 0 units SUBCUT 0730,1130,1630,2100 [facility]; Protocol Last Admin: 03/29/19 13:09 Dose: Not Given Naloxone HCl (Narcan*) 0.08 mg IV Q2M PRN PRN Reason: severe induced resp depression Oxycodone/Acetaminophen (Percocet 5/325 Tab*) 1 tab PO Q4H PRN PRN Reason: PAIN - MODERATE Oxycodone/Acetaminophen (Percocet 5/325 Tab*) 2 tab PO Q4H PRN PRN Reason: PAIN - SEVERE Last Admin: 03/29/19 05:56 Dose: 2 tab Valsartan (Diovan Tab*) 320 mg PO DAILY [facility] Last Admin: 03/29/19 08:49 Dose: Not Given Vital Signs - 8 hr 03/29/19 03/29/19 03/29/19 08:00 08:47 11:35 Temperature 98.7 F Pulse Rate 61 Respiratory 16 16 16 Rate Blood Pressure 135/68 (mmHg) O2 Sat by Pulse 100 Oximetry 03/29/19 03/29/19 03/29/19 15:05 15:07 15:11 Temperature 96.8 F Pulse Rate 65 75 64 Respiratory 20 Rate Blood Pressure 160/93 159/92 161/97 (mmHg) O2 Sat by Pulse 96 95 89 Oximetry 03/29/19 15:16 Temperature Pulse Rate 60 Respiratory Rate Blood Pressure 143/74 (mmHg) O2 Sat by Pulse 100 Oximetry Oxygen Devices in Use Now: None Appearance: alert, NAD Eyes: No Scleral Icterus, PERRLA Ears/Nose/Mouth/Throat: Mucous Membranes Moist Neck: NL Appearance and Movements; NL JVP, Trachea Midline Respiratory: Symmetrical Chest Expansion and Respiratory Effort, Clear to Auscultation Cardiovascular: NL Sounds; No Murmurs; No JVD, RRR Abdominal: NL Sounds; No Tenderness; No Distention Extremities: - - mild LLE edema, left foot dressing, CDI Neurological: Alert and Oriented x 3 Nutrition: - - NPO Result Diagrams: 03/29/19 04:58 03/29/19 04:58 Microbiology and Other Data: Microbiology 03/23/19 11:10 Gram Stain - Final Foot Right Assess/Plan/Problems-Billing Assessment: Mr. Stone is a 48 yo M with PMH of obesity, HTN, type 2 DM, and anxiety, who presented to Wound Clinic with diabetic foot infection and was admitted because of concern for infection, found to have osteomyelitis. - Patient Problems (1) Osteomyelitis of right foot Code(s): M86.9 - OSTEOMYELITIS, UNSPECIFIED SNOMED Code(s): 5159347729285808 Comment: - POD3, plan for repeat OR this afternoon for closure versus wound vac change - Started with right plantar burn in January and progresssed to a wound, now with abscess and osteomyelitis - MRI shows marrow signal alteration proximal phalanx of the third toe, consistent with osteomyelitis - Wound culture growing Staph aureus - Appreciate Ortho consult - Appreciate ID consult; recommends vanco, cefepime, Flagyl - Continue vancomycin, cefepime, Flagyl - PICC line placed 03/28/19 (2) Anxiety Code(s): F41.9 - ANXIETY DISORDER, UNSPECIFIED SNOMED Code(s): 51933926 Comment: - Continue Buspar (3) HTN (hypertension) Code(s): I10 - ESSENTIAL (PRIMARY) HYPERTENSION SNOMED Code(s): 90560084 Comment: - Normotensive, SBP 140s - Continue amlodipine, valsartan, HCTZ (4) Type 2 diabetes mellitus Comment: - Poorly controlled, A1c 9.6 with high sugars in setting of infection - Continue glimepiride, Lispro SS (5) DVT prophylaxis Code(s): Z29.9 - ENCOUNTER FOR PROPHYLACTIC MEASURES, UNSPECIFIED SNOMED Code( s): 797426197 Comment: - SCDs (6) Full code status Code(s): Z78.9 - OTHER SPECIFIED HEALTH STATUS SNOMED Code(s): 365743541 Comment: Status and Disposition: Inpatient for osteomyelitis. Antibiotic course to be determined by ID. Anticipate d/c home when cleared by ID and Ortho.
--- NOTE | 2019-03-29 16:05 | OP ---
Operative Report - Blank - Operative Report Date of Operation: 03/29/19 Note: PATIENT: Florian Sotne DATE OF : 1970 DATE OF SURGERY: 03/29/2019 SURGEON: Sunny Blanco MD LABOR REPRESENTATIVE: ROSY Charles, whos assistance was necessary for positioning, retraction, help with instrumentation, and closure. ANESTHESIOLOGIST: Dr. Estrada PREOPERATIVE DIAGNOSIS: Right diabetic foot infection status post 3rd ray amputation with an open wound and a wound VAC in place. POSTOPERATIVE DIAGNOSIS: Right diabetic foot infection status post 3rd ray amputation with an open wound and a wound VAC in place. OPERATION: Right foot irrigation and debridement, partial wound closure and placement of a wound VAC. ANESTHESIA: MAC IMPLANTS: none TOURNIQUET TIME: None SPECIMENS: Culture swabs to microbiology ESTIMATED BLOOD LOSS: minimal COMPLICATIONS: none STATUS: Stable from the operating room to the recovery room and then back to the floor. INDICATIONS FOR PROCEDURE: Florian has a right diabetic foot infection. Both operative and non-operative treatment alternatives were reviewed. Further, the nature and risks of surgery were reviewed in careful detail. Our discussions regarding the risks of surgery included, but were not limited to, infection, wound problems, nerve injury, neuroma, RSD, persistent symptoms, blood clot, need for further surgery, failure of the surgery, and even the remote chance of catastrophic complication. DESCRIPTION OF PROCEDURE: The patient was seen in the preoperative holding unit and informed written consent was obtained. The appropriate extremity was marked. The patient was then brought to the operating room and carefully positioned on the operating room table. Anesthesia was induced. All bony prominences were padded with great care. A well-padded thigh tourniquet was placed. A chlorhexidine based pre- scrub was performed followed by a betadine prep and drape in standard sterile fashion. A surgical safety pause was then conducted in which we confirmed the appropriate patient, extremity, planned procedure, availability of equipment, indication and administration of prophylactic antibiotics, and DVT prophylaxis in the form of a compression boot on the non-surgical extremity. His open wound measured 12 cm in length by 3 cm in width by 3 cm in depth. New culture swabs were taken and sent to microbiology. The wound was thoroughly irrigated. There was some necrotic tissue laterally, which was sharply excised with a 15 blade scalpel. This did include the skin, subcutaneous, fascial and muscular layers down to the exposed bone of the midfoot. The irrigation and debridement did include the area lateral to the excised third metatarsal, as well as medial to the excised third metatarsal. All clearly nonviable tissue was sharply excised. The wound was then again copiously irrigated. I then closed most of the wound in a layered fashion utilizing 0 PDS and 2-0 Prolene. The distal 2 cm of the wound could not be closed. A wound VAC was placed into this wound, as well as the plantar ulcer. The wound at the forefoot measures 2 cm x 2 cm x 2 cm. The plantar ulcer measures 2 cm in diameter by 0.5 cm in depth. The wound VAC was extended proximally in a incisional VAC fashion. Good suction was obtained. The foot was then dressed The patient was then awakened from anesthesia and transferred to the recovery room in stable condition. There were no complications. All needle and sponge counts were correct at the end of the case. ATTESTATION: I attest I was present and scrubbed and performed the critical portions of the procedure myself. POSTOPERATIVE PLAN: He will continue on antibiotics as guided by the infectious disease service. Nonweightbearing on the right foot. Wound VAC changes every 3 days.
[2019-03-29] MEDS: Lactated Ringers 1000 ML Bag* 1,000 ML IV SCH (16:42)
[2019-03-29] MEDS: HYDROmorphone INJ* 0.5 MG/0.5 ML SYRINGE IV SLOW PU PRN (20:24)
[2019-03-29] MEDS ORDERED: ceFAZolin* 2 GM in NS 100 MLS Q8H (Pharmacy Admix) IVPB SCH (22:00)
[2019-03-29] MEDS: hydrALAZINE IV* 20 MG/ML VIAL IV SLOW PU PRN (23:31)
[2019-03-30] MEDS: ceFAZolin* 2 GM in NS 100 MLS Q8H (Pharmacy Admix) IVPB SCH ×3 (02:05→18:16)
[2019-03-30] MEDS: Insulin LISPRO* 1 UNITS UNIT SUBCUT SCH ×4 (09:38→21:24)
[2019-03-30] MEDS: Hydrochlorothiazide TAB* 25 MG PO SCH (09:46)
[2019-03-30] MEDS: CMC:Glimepiride (NF) 2 MG TAB PO SCH (09:47)
[2019-03-30] MEDS: busPIRone TAB* 10 MG PO SCH (09:48)
[2019-03-30] MEDS: Valsartan TAB* 160 MG PO SCH (09:48)
[2019-03-30] MEDS: amLODIPine TAB* 5 MG PO SCH (09:48)
[2019-03-30] MEDS: Atorvastatin* 10 MG TAB PO SCH (09:48)
[2019-03-30] MEDS: oxyCODONE/Acetamin 5/325 MG* TAB PO PRN ×2 (10:01→20:06)
--- NOTE | 2019-03-30 11:15 | PN ---
Progress Note - Progress Note Date of Service: 03/30/19 SOAP: Subjective: []Patient seen at bedside. Pleasant and cooperative. Denies pain, fever, chills or nausea. Objective: [] Vital Signs Temp 98.2 F 03/30/19 07:45 Pulse 74 03/30/19 07:45 Resp 16 03/30/19 10:01 BP 168/84 03/30/19 07:45 Pulse Ox 96 03/30/19 07:45 Intake & Output 03/29/19 03/30/19 03/30/19 18:59 06:59 18:59 Intake Total 400 1112 Output Total 1200 1550 Balance -800 -438 Intake: IV Fluids 100 1112 ABX - CEFAZOLIN 105 LR 1007 NS 100ML, Cefazolin 2G 100 Oral 300 Output: Urine 1200 1550 Laboratory Results - last 24 hr 03/29/19 03/29/19 03/29/19 11:59 17:06 20:58 POC Glucose (mg/dL) 141 H 133 H 248 H 03/30/19 03/30/19 08:32 09:39 POC Glucose (mg/dL) 69 L 213 H Right foot dressings are dry and intact wound vac running well remainder of toes pink and warm with full sensation Assessment: []s/p amputation 3rd toe, 3rd Ray for Osteo 03/26, 03/29 Plan: []NWB RLE wound vac IV abx, cefazolin, has PIC line return to OR Tuesday for final closure
--- NOTE | 2019-03-30 17:34 | PN ---
Subjective Date of Service: 03/30/19 Interval History: Patient seen and examined. Ambulatory with scooter, remains NWB on RLE. Denies fevers or chills. States pain is manageable. No SOB, no further complaints. Tolerating IV atbx without issue. Family History: Unchanged from Admission Social History: Unchanged from Admission Past Medical History: Unchanged from Admission Objective Active Medications: Acetaminophen (Tylenol Tab*) 650 mg PO Q6H PRN PRN Reason: MILD PAIN or TEMP > 100.4 Amlodipine Besylate (Norvasc Tab*) 10 mg PO DAILY [facility] Last Admin: 03/30/19 09:48 Dose: 10 mg Atorvastatin Calcium (Lipitor*) 10 mg PO DAILY [facility] Last Admin: 03/30/19 09:48 Dose: 10 mg Buspirone HCl (Buspar Tab*) 10 mg PO DAILY [facility] Last Admin: 03/30/19 09:48 Dose: 10 mg Dextrose (Dextrose 50% Vial 50 Ml*) 25 ml IV PUSH .FOR FS < 60 - SS PRN PRN Reason: FS < 60 Diphenhydramine HCl (Benadryl Iv*) 25 mg IV Q6H PRN PRN Reason: ITCHING Last Admin: 03/24/19 09:02 Dose: 25 mg Glimepiride (Glimepiride (Nf)) 1 mg PO DAILY [facility] Last Admin: 03/30/19 09:47 Dose: 1 mg Heparin Sodium (Porcine) (Heparin Flush Picc/Ml/Cvc(*)) 1 - 3 ml FLUSH 0600, 1800 [facility]; Protocol Last Admin: 03/30/19 11:09 Dose: 1 ml Hydralazine HCl (Apresoline Iv*) 5 mg IV SLOW PU Q6H PRN PRN Reason: Systolic Bp Greater Than: 160 Last Admin: 03/29/19 23:31 Dose: 5 mg Hydrochlorothiazide (Hydrodiuril Tab*) 25 mg PO DAILY [facility] Last Admin: 03/30/19 09:46 Dose: 25 mg Hydromorphone HCl (Dilaudid Inj*) 0.5 mg IV SLOW PU Q4H PRN PRN Reason: Pain - Unrelieved Last Admin: 03/29/19 20:24 Dose: 0.5 mg Lactated Ringer's (Lactated Ringers 1000 Ml Bag*) 1,000 mls @ 125 mls/hr IV PER RATE [facility] Last Admin: 03/29/19 16:42 Dose: 125 mls/hr Cefazolin Sodium 2 gm/ Sodium (Chloride) 100 mls @ 200 mls/hr IVPB 0200,1000, 1800 [facility] Last Admin: 03/30/19 09:57 Dose: 200 mls/hr Insulin Human Lispro (Humalog*) 0 units SUBCUT 0730,1130,1630,2100 [facility]; Protocol Last Admin: 03/30/19 13:07 Dose: 3 units Oxycodone/Acetaminophen (Percocet 5/325 Tab*) 1 tab PO Q4H PRN PRN Reason: PAIN - MODERATE Oxycodone/Acetaminophen (Percocet 5/325 Tab*) 2 tab PO Q4H PRN PRN Reason: PAIN - SEVERE Last Admin: 03/30/19 10:01 Dose: 2 tab Valsartan (Diovan Tab*) 320 mg PO DAILY [facility] Last Admin: 03/30/19 09:48 Dose: 320 mg Vital Signs - 8 hr 03/30/19 03/30/19 03/30/19 10:01 11:18 12:32 Temperature 98.5 F Pulse Rate 78 Respiratory 16 16 16 Rate Blood Pressure 140/80 (mmHg) O2 Sat by Pulse 98 Oximetry 03/30/19 15:42 Temperature 98.1 F Pulse Rate 61 Respiratory 16 Rate Blood Pressure 134/73 (mmHg) O2 Sat by Pulse 97 Oximetry Oxygen Devices in Use Now: None Appearance: alert, NAD Eyes: PERRLA Ears/Nose/Mouth/Throat: Mucous Membranes Moist Neck: NL Appearance and Movements; NL JVP, Trachea Midline Respiratory: Symmetrical Chest Expansion and Respiratory Effort, Clear to Auscultation Cardiovascular: NL Sounds; No Murmurs; No JVD, RRR Extremities: No Clubbing, Cyanosis, - - right foot dressed, wound vac in place Neurological: Alert and Oriented x 3, NL Gait - with scooter, steady Nutrition: Taking PO's Result Diagrams: 03/29/19 04:58 03/29/19 04:58 Microbiology and Other Data: Microbiology 03/23/19 11:10 Gram Stain - Final Foot Right Assess/Plan/Problems-Billing Assessment: Mr. Stone is a 48 yo M with PMH of obesity, HTN, type 2 DM, and anxiety, who presented to Wound Clinic with diabetic foot infection and was admitted because of concern for infection, found to have osteomyelitis. - Patient Problems (1) Osteomyelitis of right foot Code(s): M86.9 - OSTEOMYELITIS, UNSPECIFIED SNOMED Code(s): 1119139722652095 Comment: - POD3/POD1, washouts with partial closure and reapplication of wound vac for staph aureus of chronic wound since January on plantar aspect right foot - MRI shows marrow signal alteration proximal phalanx of the third toe, consistent with osteomyelitis - ID following, initially on vanco, cefepime, flagyl, now on single agent cefazolin 2gm Q8h - PICC line placed 03/28/19 (2) Anxiety Code(s): F41.9 - ANXIETY DISORDER, UNSPECIFIED SNOMED Code(s): 23334491 Comment: - Continue Buspar (3) HTN (hypertension) Code(s): I10 - ESSENTIAL (PRIMARY) HYPERTENSION SNOMED Code(s): 77146612 Comment: - Normotensive, SBP 140s - Continue amlodipine, valsartan, HCTZ (4) Type 2 diabetes mellitus Comment: - Poorly controlled, A1c 9.6 with high sugars in setting of infection that are improved last 24 hours - Continue glimepiride, Lispro SS (5) DVT prophylaxis Code(s): Z29.9 - ENCOUNTER FOR PROPHYLACTIC MEASURES, UNSPECIFIED SNOMED Code( s): 286859789 Comment: - SCDs (6) Full code status Code(s): Z78.9 - OTHER SPECIFIED HEALTH STATUS SNOMED Code(s): 908700795 Comment: Status and Disposition: Inpatient for osteomyelitis. Paln for DC home Tuesday with [facility] for infusion , may also need wound vac if wound cannot be further closed by ortho before discharge.
[2019-03-31] MEDS: ceFAZolin* 2 GM in NS 100 MLS Q8H (Pharmacy Admix) IVPB SCH ×3 (02:20→17:26)
[2019-03-31] MEDS: Insulin LISPRO* 1 UNITS UNIT SUBCUT SCH ×4 (09:10→21:21)
[2019-03-31] MEDS: amLODIPine TAB* 5 MG PO SCH (09:12)
[2019-03-31] MEDS: oxyCODONE/Acetamin 5/325 MG* TAB PO PRN ×3 (09:12→21:22)
[2019-03-31] MEDS: Valsartan TAB* 160 MG PO SCH (09:12)
[2019-03-31] MEDS: busPIRone TAB* 10 MG PO SCH (09:12)
[2019-03-31] MEDS: CMC:Glimepiride (NF) 2 MG TAB PO SCH (09:13)
[2019-03-31] MEDS: Hydrochlorothiazide TAB* 25 MG PO SCH (09:13)
[2019-03-31] MEDS: Atorvastatin* 10 MG TAB PO SCH (09:14)
--- NOTE | 2019-03-31 15:16 | PN ---
Subjective Date of Service: 03/31/19 Interval History: Patient feeling well this morning. He has been using the scooter to ambulate around the hospital today. Feels his pain is well controlled with 10mg percocet BID. Denies difficulty breathing, fever/chils, chest pain, abd pain. Family History: Unchanged from Admission Social History: Unchanged from Admission Past Medical History: Unchanged from Admission Objective Active Medications: Acetaminophen (Tylenol Tab*) 650 mg PO Q6H PRN PRN Reason: MILD PAIN or TEMP > 100.4 Amlodipine Besylate (Norvasc Tab*) 10 mg PO DAILY [facility] Last Admin: 03/31/19 09:12 Dose: 10 mg Atorvastatin Calcium (Lipitor*) 10 mg PO DAILY [facility] Last Admin: 03/31/19 09:14 Dose: 10 mg Buspirone HCl (Buspar Tab*) 10 mg PO DAILY [facility] Last Admin: 03/31/19 09:12 Dose: 10 mg Dextrose (Dextrose 50% Vial 50 Ml*) 25 ml IV PUSH .FOR FS < 60 - SS PRN PRN Reason: FS < 60 Diphenhydramine HCl (Benadryl Iv*) 25 mg IV Q6H PRN PRN Reason: ITCHING Last Admin: 03/24/19 09:02 Dose: 25 mg Glimepiride (Glimepiride (Nf)) 1 mg PO DAILY [facility] Last Admin: 03/31/19 09:13 Dose: 1 mg Heparin Sodium (Porcine) (Heparin Flush Picc/Ml/Cvc(*)) 1 - 3 ml FLUSH 0600, 1800 [facility]; Protocol Last Admin: 03/31/19 11:25 Dose: 1 ml Hydralazine HCl (Apresoline Iv*) 5 mg IV SLOW PU Q6H PRN PRN Reason: Systolic Bp Greater Than: 160 Last Admin: 03/29/19 23:31 Dose: 5 mg Hydrochlorothiazide (Hydrodiuril Tab*) 25 mg PO DAILY [facility] Last Admin: 03/31/19 09:13 Dose: 25 mg Hydromorphone HCl (Dilaudid Inj*) 0.5 mg IV SLOW PU Q4H PRN PRN Reason: Pain - Unrelieved Last Admin: 03/29/19 20:24 Dose: 0.5 mg Lactated Ringer's (Lactated Ringers 1000 Ml Bag*) 1,000 mls @ 125 mls/hr IV PER RATE [facility] Last Admin: 03/29/19 16:42 Dose: 125 mls/hr Cefazolin Sodium 2 gm/ Sodium (Chloride) 100 mls @ 200 mls/hr IVPB 0200,1000, 1800 [facility] Last Admin: 03/31/19 10:20 Dose: 200 mls/hr Insulin Human Lispro (Humalog*) 0 units SUBCUT 0730,1130,1630,2100 [facility]; Protocol Last Admin: 03/31/19 13:18 Dose: 3 units Oxycodone/Acetaminophen (Percocet 5/325 Tab*) 1 tab PO Q4H PRN PRN Reason: PAIN - MODERATE Oxycodone/Acetaminophen (Percocet 5/325 Tab*) 2 tab PO Q4H PRN PRN Reason: PAIN - SEVERE Last Admin: 03/31/19 09:12 Dose: 2 tab Valsartan (Diovan Tab*) 320 mg PO DAILY [facility] Last Admin: 03/31/19 09:12 Dose: 320 mg Vital Signs - 8 hr 03/31/19 03/31/19 03/31/19 08:00 09:12 11:30 Temperature 98.0 F Pulse Rate 62 Respiratory 18 18 18 Rate Blood Pressure 136/73 (mmHg) O2 Sat by Pulse 95 Oximetry Oxygen Devices in Use Now: None Appearance: Obese, white male, appears older than stated age, laying upright in bed, in NAD Eyes: No Scleral Icterus, PERRLA Ears/Nose/Mouth/Throat: Mucous Membranes Moist Neck: NL Appearance and Movements; NL JVP Respiratory: Symmetrical Chest Expansion and Respiratory Effort, Clear to Auscultation Cardiovascular: NL Sounds; No Murmurs; No JVD, RRR Abdominal: - - abd soft, nontender, nondistended Extremities: No Edema, No Clubbing, Cyanosis, - - right foot to wound vac Skin: No Rash or Ulcers Neurological: Alert and Oriented x 3, NL Muscle Strength and Tone Result Diagrams: 03/29/19 04:58 03/29/19 04:58 Microbiology and Other Data: Microbiology 03/23/19 11:10 Gram Stain - Final Foot Right Assess/Plan/Problems-Billing Assessment: Mr. Stone is a 48 yo M with PMH of obesity, HTN, type 2 DM, and anxiety, who presented to Wound Clinic with diabetic foot infection and was admitted because of concern for infection, found to have osteomyelitis. - Patient Problems (1) Osteomyelitis of right foot Current Visit: Yes Status: Acute Code(s): M86.9 - OSTEOMYELITIS, UNSPECIFIED SNOMED Code(s): 1017061192598266 Comment: - Presents with worsening of chronic wound on plantar aspect of right foot - Wound culture positive for staph aureus - MRI shows marrow signal alteration proximal phalanx of the third toe, consistent with osteomyelitis - s/p right third ray amputation on 03/26/19 then s/p washout with partial closure and wound vac exchang on 03/29/19 - ID following, initially on vanco, cefepime, flagyl, now on single agent cefazolin 2gm Q8h - PICC line placed 03/28/19 - Ortho plans for final closure Tuesday04/02/19 (2) Type 2 diabetes mellitus Current Visit: Yes Status: Acute Comment: - Poorly controlled, A1c 9.6 - Continue glimepiride, Lispro SS - BGs with some improvement today, 150s-170s (3) Anxiety Current Visit: Yes Status: Acute Code(s): F41.9 - ANXIETY DISORDER, UNSPECIFIED SNOMED Code(s): 11380385 Comment: - Continue Buspar (4) HTN (hypertension) Current Visit: Yes Status: Acute Code(s): I10 - ESSENTIAL (PRIMARY) HYPERTENSION SNOMED Code(s): 50923471 Comment: - Normotensive - Continue amlodipine, valsartan, HCTZ (5) DVT prophylaxis Current Visit: Yes Status: Acute Code(s): Z29.9 - ENCOUNTER FOR PROPHYLACTIC MEASURES, UNSPECIFIED SNOMED Code(s): 109802217 Comment: - SCDs (6) Full code status Current Visit: Yes Status: Acute Code(s): Z78.9 - OTHER SPECIFIED HEALTH STATUS SNOMED Code(s): 282358471 Comment: Status and Disposition: Inpatient for osteomyelitis. Plan for DC home Tuesday with [facility] for infusion , may also need wound vac if wound cannot be further closed by ortho before discharge.
[2019-04-01] MEDS: ceFAZolin* 2 GM in NS 100 MLS Q8H (Pharmacy Admix) IVPB SCH ×3 (02:36→17:27)
[2019-04-01 06:12] LABS: BUN/Creatinine Ratio 12.2 (8-20); Calcium 8.7 mg/dL (8.6-10.3); EGFR African American 120.3 (>60); EGFR Non-African American 99.5 (>60)
[2019-04-01] MEDS: Insulin LISPRO* 1 UNITS UNIT SUBCUT SCH ×4 (09:09→21:01)
[2019-04-01] MEDS: Valsartan TAB* 160 MG PO SCH (09:10)
[2019-04-01] MEDS: busPIRone TAB* 10 MG PO SCH (09:10)
[2019-04-01] MEDS: amLODIPine TAB* 5 MG PO SCH (09:10)
[2019-04-01] MEDS: Hydrochlorothiazide TAB* 25 MG PO SCH (09:10)
[2019-04-01] MEDS: CMC:Glimepiride (NF) 2 MG TAB PO SCH (09:10)
[2019-04-01] MEDS: Atorvastatin* 10 MG TAB PO SCH (09:10)
--- NOTE | 2019-04-01 09:27 | PN ---
PROGRESS NOTE: DATE OF SERVICE: 04/01/19 SUMMARY: Florian is almost a week out from his initial debridement with ray amputation of his right foot and then had an irrigation debridement 3 days ago with secondary closure and VAC dressing. Today, he is in bed comfortable, afebrile, does not feel anyway any sense of malaise or fatigue. His vital signs are all stable. He has his dressing unwrapped, but the VAC dressing remains functioning well. There is no significant bleeding. The erythema and edema of the foot has decreased significantly. Plan at this point will be a bedside VAC dressing change tomorrow and depending on the appearance of the wound, possibly discharge soon thereafter with antibiotics per Infectious Disease. [id number]/CPS #: [id number] ROBB
--- NOTE | 2019-04-01 10:33 | PN ---
Subjective Date of Service: 04/01/19 Interval History: Patient is feeling well today. Patient denies F/C, N/V, abdominal pain, diarrhea , CP, SOB. Patient was able to use his scooter for approximately an hour today without issue and is having no issue with maintaining NWB status on foot. Family History: Unchanged from Admission Social History: Unchanged from Admission Past Medical History: Unchanged from Admission Objective Active Medications: Acetaminophen (Tylenol Tab*) 650 mg PO Q6H PRN PRN Reason: MILD PAIN or TEMP > 100.4 Amlodipine Besylate (Norvasc Tab*) 10 mg PO DAILY [facility] Last Admin: 04/01/19 09:10 Dose: 10 mg Atorvastatin Calcium (Lipitor*) 10 mg PO DAILY [facility] Last Admin: 04/01/19 09:10 Dose: 10 mg Buspirone HCl (Buspar Tab*) 10 mg PO DAILY [facility] Last Admin: 04/01/19 09:10 Dose: 10 mg Dextrose (Dextrose 50% Vial 50 Ml*) 25 ml IV PUSH .FOR FS < 60 - SS PRN PRN Reason: FS < 60 Diphenhydramine HCl (Benadryl Iv*) 25 mg IV Q6H PRN PRN Reason: ITCHING Last Admin: 03/24/19 09:02 Dose: 25 mg Glimepiride (Glimepiride (Nf)) 1 mg PO DAILY [facility] Last Admin: 04/01/19 09:10 Dose: 1 mg Heparin Sodium (Porcine) (Heparin Flush Picc/Ml/Cvc(*)) 1 - 3 ml FLUSH 0600, 1800 [facility]; Protocol Last Admin: 04/01/19 05:28 Dose: 1 ml Hydrochlorothiazide (Hydrodiuril Tab*) 25 mg PO DAILY [facility] Last Admin: 04/01/19 09:10 Dose: 25 mg Hydromorphone HCl (Dilaudid Inj*) 0.5 mg IV SLOW PU Q4H PRN PRN Reason: Pain - Unrelieved Last Admin: 03/29/19 20:24 Dose: 0.5 mg Cefazolin Sodium 2 gm/ Sodium (Chloride) 100 mls @ 200 mls/hr IVPB 0200,1000, 1800 [facility] Last Admin: 04/01/19 02:36 Dose: 200 mls/hr Insulin Human Lispro (Humalog*) 0 units SUBCUT 0730,1130,1630,2100 [facility]; Protocol Last Admin: 04/01/19 09:09 Dose: 3 units Oxycodone/Acetaminophen (Percocet 5/325 Tab*) 1 tab PO Q4H PRN PRN Reason: PAIN - MODERATE Oxycodone/Acetaminophen (Percocet 5/325 Tab*) 2 tab PO Q4H PRN PRN Reason: PAIN - SEVERE Last Admin: 03/31/19 21:22 Dose: 2 tab Valsartan (Diovan Tab*) 320 mg PO DAILY [facility] Last Admin: 04/01/19 09:10 Dose: 320 mg Vital Signs - 8 hr 04/01/19 04/01/19 05:07 08:44 Temperature 98.8 F 98.8 F Pulse Rate 96 80 Respiratory 16 16 Rate Blood Pressure 156/80 144/81 (mmHg) O2 Sat by Pulse 97 96 Oximetry Oxygen Devices in Use Now: None Appearance: Patient is a 49yo male who appears stated age and is sitting in the bed in [facility]. Eyes: No Scleral Icterus, PERRLA Ears/Nose/Mouth/Throat: NL Teeth, Lips, Gums, Clear Oropharnyx, Mucous Membranes Moist Neck: NL Appearance and Movements; NL JVP, Trachea Midline Respiratory: Symmetrical Chest Expansion and Respiratory Effort, Clear to Auscultation Cardiovascular: NL Sounds; No Murmurs; No JVD, RRR, No Edema Abdominal: NL Sounds; No Tenderness; No Distention, No Hepatosplenomegaly Lymphatic: No Cervical Adenopathy Extremities: No Edema, No Clubbing, Cyanosis Skin: No Nodules or Sclerosis, - - Left foot in bulky dressing and wound not visualized. Neurological: Alert and Oriented x 3, NL Sensation, NL Muscle Strength and Tone , - - CN II-XII intact. Result Diagrams: 03/29/19 04:58 04/01/19 05:33 Microbiology and Other Data: Microbiology 03/23/19 11:10 Gram Stain - Final Foot Right Assess/Plan/Problems-Billing Assessment: Mr. Stone is a 48 yo M with PMH of obesity, HTN, type 2 DM, and anxiety, who presented to Wound Clinic with diabetic foot infection and was admitted because of concern for infection, found to have osteomyelitis. Patient is S/P 2 procedures and is on IV antibiotics and improving. - Patient Problems (1) Osteomyelitis of right foot Current Visit: Yes Status: Acute Code(s): M86.9 - OSTEOMYELITIS, UNSPECIFIED SNOMED Code(s): 8074765249687174 Comment: - Presents with worsening of chronic wound on plantar aspect of right foot - Wound culture positive for staph aureus - MRI shows marrow signal alteration proximal phalanx of the third toe, consistent with osteomyelitis - s/p right third ray amputation on 03/26/19 then s/p washout with partial closure and wound vac exchang on 03/29/19 - ID following, initially on vanco, cefepime, flagyl, now on single agent cefazolin 2gm Q8h - PICC line placed 03/28/19 - Ortho plans for vac change and assessment 04/02 and then possible D/C - Will discuss with ID for final duration of IV antibiotics. (2) Diabetic foot infection Current Visit: Yes Status: Acute Code(s): E11.628 - TYPE 2 DIABETES MELLITUS WITH OTHER SKIN COMPLICATIONS; L08.9 - LOCAL INFECTION OF THE SKIN AND SUBCUTANEOUS TISSUE, UNSP SNOMED Code(s): 398078667 Comment: - Started with right plantar burn in January, and progresssed to a wound, now with abscess and osteomyelitis. - MRI shows "Plantar ulceration below level of the second and third metatarsal heads with underlying cellulitis. Abscess and infected tenosynovitis which extends from the level of the proximal metatarsals to the proximal toes. Marrow signal alteration proximal phalanx of the third toe, consistent with osteomyelitis." - See plan above. (3) Anxiety Current Visit: Yes Status: Acute Code(s): F41.9 - ANXIETY DISORDER, UNSPECIFIED SNOMED Code(s): 16127090 Comment: - Continue Buspar (4) HLD (hyperlipidemia) Current Visit: Yes Status: Acute Code(s): E78.5 - HYPERLIPIDEMIA, UNSPECIFIED SNOMED Code(s): 53570980 Comment: - Continue atorvastatin (5) HTN (hypertension) Current Visit: Yes Status: Acute Code(s): I10 - ESSENTIAL (PRIMARY) HYPERTENSION SNOMED Code(s): 90481139 Comment: - Generally Normotensive - Continue amlodipine, valsartan, HCTZ (6) Type 2 diabetes mellitus Current Visit: Yes Status: Acute Comment: - Poorly controlled, A1c 9.6 - Continue glimepiride, Lispro SS - BGs with some improvement today, 150s-170s (7) DVT prophylaxis Current Visit: Yes Status: Acute Code(s): Z29.9 - ENCOUNTER FOR PROPHYLACTIC MEASURES, UNSPECIFIED SNOMED Code(s): 714515813 Comment: - SCDs (8) Full code status Current Visit: Yes Status: Acute Code(s): Z78.9 - OTHER SPECIFIED HEALTH STATUS SNOMED Code(s): 225394986 Comment: Status and Disposition: Inpatient for osteomyelitis. Plan for DC home Tuesday with [facility] for infusion , may also need wound vac if wound cannot be further closed by ortho before discharge.
[2019-04-01] MEDS: oxyCODONE/Acetamin 5/325 MG* TAB PO PRN (17:26)
[2019-04-02] MEDS: ceFAZolin* 2 GM in NS 100 MLS Q8H (Pharmacy Admix) IVPB SCH ×3 (02:09→17:14)
[2019-04-02] MEDS: oxyCODONE/Acetamin 5/325 MG* TAB PO PRN ×2 (02:12→14:00)
--- NOTE | 2019-04-02 10:07 | PN ---
Progress Note - Progress Note Date of Service: 04/02/19 SOAP: Subjective: CC: Right foot infection HPI: Mr. Stone is a 58 yo male with PMH significant for DM2, morbid obesity , HTN, and anxiety; who presented to the hospital for right foot infection. Denies fever, chills, shortness of breath, nausea, vomiting, or diarrhea. He is feeling well. Continues to have a wound vac in place. PICC line was placed last week. Objective: Vital Signs 04/02/19 04/02/19 04/02/19 07:28 07:37 07:39 Temperature 97.7 F Pulse Rate 71 Respiratory 17 17 Rate Blood Pressure 149/84 (mmHg) O2 Sat by Pulse 97 97 Oximetry Physical Exam: General: NAD, sitting up in bed Neurological: Alert and Oriented HEENT: Moist MM, no thrush Cardiovascular: Heart rate regular Respiratory: Lung sound clear bilateral Abdominal: Bowel sounds present; ABD soft, non tender and large Skin: Surgical dressing to right foot intact with wound vac. PICC line to right UE, site benign Laboratory Last Values WBC 8.6 10^3/uL (3.5-10.8) 03/29/19 04:58 RBC 4.33 10^6 /uL (4.18-5.48) 03/29/19 04:58 Hgb 12.2 g/dL (14.0-18.0) L 03/29/19 04:58 Hct 37 % (42-52) L 03/29/19 04:58 MCV 85 fL (80-94) 03/29/19 04:58 MCH 28 pg (27-31) 03/29/19 04:58 MCHC 33 g/dL (31-36) 03/29/19 04:58 RDW 14 % (10-15) 03/29/19 04:58 Plt Count 338 10^3/uL (150-450) 03/29/19 04:58 MPV 7.9 fL (7.4-10.4) 03/29/19 04:58 Neut % (Auto) 72.5 % 03/29/19 04:58 Lymph % (Auto) 19.2 % 03/29/19 04:58 [place] % (Auto) 6.1 % 03/29/19 04:58 Eos % (Auto) 1.8 % 03/29/19 04:58 Baso % (Auto) 0.4 % 03/29/19 04:58 Absolute Neuts (auto) 6.2 10^3/ul (1.5-7.7) 03/29/19 04:58 Absolute Lymphs (auto) 1.7 10^3/ul (1.0-4.8) 03/29/19 04:58 Absolute Monos (auto) 0.5 10^3/ul (0-0.8) 03/29/19 04:58 Absolute Eos (auto) 0.2 10^3/ul (0-0.6) 03/29/19 04:58 Absolute Basos (auto) 0.0 10^3/ul (0-0.2) 03/29/19 04:58 Absolute Nucleated RBC 0.0 10^3/ul 03/29/19 04:58 Nucleated RBC % 0.0 03/29/19 04:58 ESR 80 mm/Hr (0-14) H 03/23/19 12:00 INR (Anticoag Therapy) 1.21 (0.82-1.09) H 03/26/19 04:37 Sodium 135 mmol/L (135-145) 04/01/19 05:33 Potassium 4.0 mmol/L (3.5-5.0) 04/01/19 05:33 Chloride 99 mmol/L (101-111) L 04/01/19 05:33 Carbon Dioxide 31 mmol/L (22-32) 04/01/19 05:33 Anion Gap 5 mmol/L (2-11) 04/01/19 05:33 BUN 10 mg/dL (6-24) 04/01/19 05:33 Creatinine 0.82 mg/dL (0.67-1.17) 04/01/19 05:33 Est GFR ( Amer) 120.3 (>60) 04/01/19 05:33 Est GFR (Non-Af Amer) 99.5 (>60) 04/01/19 05:33 BUN/Creatinine Ratio 12.2 (8-20) 04/01/19 05:33 Glucose 154 mg/dL (70-100) H 04/01/19 05:33 POC Glucose (mg/dL) 171 mg/dL (70-100) H 04/02/19 07:20 Hemoglobin A1c 9.6 % (4.0-5.6) H 03/23/19 12:00 Calcium 8.7 mg/dL (8.6-10.3) 04/01/19 05:33 Total Bilirubin 0.50 mg/dL (0.2-1.0) 03/23/19 12:00 AST 21 U/L (13-39) 03/23/19 12:00 ALT 33 U/L (7-52) 03/23/19 12:00 Alkaline Phosphatase 93 U/L (34-104) 03/23/19 12:00 C-Reactive Protein 67.03 mg/L (<8.01) H 03/25/19 05:46 Total Protein 6.9 g/dL (6.4-8.9) 03/23/19 12:00 Albumin 3.6 g/dL (3.2-5.2) 03/23/19 12:00 Globulin 3.3 g/dL (2-4) 03/23/19 12:00 Albumin/Globulin Ratio 1.1 (1-3) 03/23/19 12:00 Vancomycin Trough 12.0 mcg/mL 03/26/19 04:37 Microbiology 03/29/19 14:30 Anaerobic Culture - Final Wound No Growth Day 4 Gram Stain - Final Wound Culture - Final No Growth Day 4 03/26/19 14:59 Anaerobic Culture - Final Wound No Growth Day 4 03/26/19 14:59 Gram Stain - Final Foot Right Wound Culture - Final No Growth Day 4 03/23/19 11:10 Gram Stain - Final Foot Right Wound Culture - Final Staphylococcus Aureus Normal [place] Assessment: 1. Right 3rd toe and metatarsal acute osteomyelitis. MRI with plantar ulcer below 2nd and 3rd metatarsal heads with cellulitis, abscess, tenosynovitis, osteomyelitis. S/P right 3rd ray amputation, POD #7. Wound culture with staph aureus. Repeat culture from the OR with no growth on day 4. Afebrile and no leukocytosis. 2. DM2 with peripheral neuropathy. 3. Morbid obesity. BMI 35. 4. PCN allergy. Caused nausea. Plan: Continue Ancef 2 gm IV Q8H. Will need 6 weeks of IV ABX, day 7/. For discharge will transition to Ancef 6gm IV continuous. Will need weekly labs while on IV ABX: CBC, CMP, and CRP. Followup in the ID office outpatient in 2 weeks. 25 minutes floor time: > 50% face to face in counseling with the patient regarding ABX treatment, possible side effects, weekly labs, and when to call the office (fever, diarrhea, or rash).
[2019-04-02] MEDS: Insulin LISPRO* 1 UNITS UNIT SUBCUT SCH ×4 (10:35→20:45)
[2019-04-02] MEDS: amLODIPine TAB* 5 MG PO SCH (10:42)
[2019-04-02] MEDS: CMC:Glimepiride (NF) 2 MG TAB PO SCH (10:42)
[2019-04-02] MEDS: Valsartan TAB* 160 MG PO SCH (10:42)
[2019-04-02] MEDS: Atorvastatin* 10 MG TAB PO SCH (10:43)
[2019-04-02] MEDS: busPIRone TAB* 10 MG PO SCH (10:43)
[2019-04-02] MEDS: Hydrochlorothiazide TAB* 25 MG PO SCH (10:43)
--- NOTE | 2019-04-02 13:42 | PN ---
Subjective Date of Service: 04/02/19 Interval History: Patient is feeling well today. Patient denies CP, SOB, Dizziness, F/C, N/V, abdominal pain, diarrhea, or other pain. Family History: Unchanged from Admission Social History: Unchanged from Admission Past Medical History: Unchanged from Admission Objective Active Medications: Acetaminophen (Tylenol Tab*) 650 mg PO Q6H PRN PRN Reason: MILD PAIN or TEMP > 100.4 Amlodipine Besylate (Norvasc Tab*) 10 mg PO DAILY [facility] Last Admin: 04/02/19 10:42 Dose: 10 mg Atorvastatin Calcium (Lipitor*) 10 mg PO DAILY [facility] Last Admin: 04/02/19 10:43 Dose: 10 mg Buspirone HCl (Buspar Tab*) 10 mg PO DAILY [facility] Last Admin: 04/02/19 10:43 Dose: 10 mg Dextrose (Dextrose 50% Vial 50 Ml*) 25 ml IV PUSH .FOR FS < 60 - SS PRN PRN Reason: FS < 60 Diphenhydramine HCl (Benadryl Iv*) 25 mg IV Q6H PRN PRN Reason: ITCHING Last Admin: 03/24/19 09:02 Dose: 25 mg Glimepiride (Glimepiride (Nf)) 1 mg PO DAILY [facility] Last Admin: 04/02/19 10:42 Dose: 1 mg Heparin Sodium (Porcine) (Heparin Flush Picc/Ml/Cvc(*)) 1 - 3 ml FLUSH 0600, 1800 [facility]; Protocol Last Admin: 04/02/19 06:53 Dose: Not Given Hydrochlorothiazide (Hydrodiuril Tab*) 25 mg PO DAILY [facility] Last Admin: 04/02/19 10:43 Dose: 25 mg Hydromorphone HCl (Dilaudid Inj*) 0.5 mg IV SLOW PU Q4H PRN PRN Reason: Pain - Unrelieved Last Admin: 03/29/19 20:24 Dose: 0.5 mg Cefazolin Sodium 2 gm/ Sodium (Chloride) 100 mls @ 200 mls/hr IVPB 0200,1000, 1800 [facility] Last Admin: 04/02/19 10:43 Dose: 200 mls/hr Insulin Human Lispro (Humalog*) 0 units SUBCUT 0730,1130,1630,2100 [facility]; Protocol Last Admin: 04/02/19 10:35 Dose: Not Given Oxycodone/Acetaminophen (Percocet 5/325 Tab*) 1 tab PO Q4H PRN PRN Reason: PAIN - MODERATE Oxycodone/Acetaminophen (Percocet 5/325 Tab*) 2 tab PO Q4H PRN PRN Reason: PAIN - SEVERE Last Admin: 04/02/19 02:12 Dose: 2 tab Valsartan (Diovan Tab*) 320 mg PO DAILY [facility] Last Admin: 04/02/19 10:42 Dose: 320 mg Vital Signs - 8 hr 04/02/19 04/02/19 04/02/19 07:28 07:37 07:39 Temperature 97.7 F Pulse Rate 71 Respiratory 17 17 Rate Blood Pressure 149/84 (mmHg) O2 Sat by Pulse 97 97 Oximetry Oxygen Devices in Use Now: None Appearance: Patient is a 49yo male who appears stated age and is sitting in the bed in NAD. Eyes: No Scleral Icterus, PERRLA Ears/Nose/Mouth/Throat: NL Teeth, Lips, Gums, Clear Oropharnyx, Mucous Membranes Moist Neck: NL Appearance and Movements; NL JVP, Trachea Midline Respiratory: Symmetrical Chest Expansion and Respiratory Effort, Clear to Auscultation Cardiovascular: NL Sounds; No Murmurs; No JVD, RRR, No Edema, - - Good Pulses Abdominal: NL Sounds; No Tenderness; No Distention, No Hepatosplenomegaly Lymphatic: No Cervical Adenopathy Extremities: No Clubbing, Cyanosis Skin: No Nodules or Sclerosis, - - Left Foot dressed with wound vac in place. Neurological: Alert and Oriented x 3, NL Sensation, NL Muscle Strength and Tone , - - CN II-XII intact. Result Diagrams: 03/29/19 04:58 04/01/19 05:33 Microbiology and Other Data: Microbiology 03/23/19 11:10 Gram Stain - Final Foot Right Assess/Plan/Problems-Billing Assessment: Mr. Stone is a 48 yo M with PMH of obesity, HTN, type 2 DM, and anxiety, who presented to Wound Clinic with diabetic foot infection and was admitted because of concern for infection, found to have osteomyelitis. Patient is S/P 2 procedures and is on IV antibiotics and improving. - Patient Problems (1) Osteomyelitis of right foot Current Visit: Yes Status: Acute Code(s): M86.9 - OSTEOMYELITIS, UNSPECIFIED SNOMED Code(s): 0057816918072427 Comment: - Presents with worsening of chronic wound on plantar aspect of right foot - Wound culture positive for MSSA - MRI shows marrow signal alteration proximal phalanx of the third toe, consistent with osteomyelitis - s/p right third ray amputation on 03/26/19 then s/p washout with partial closure and wound vac exchang on 03/29/19 - ID following, initially on vanco, cefepime, flagyl, now on single agent cefazolin 2gm Q8h - PICC line placed 03/28/19 - Ortho plans for vac change and assessment 04/02, will then need a vac set up which will take 3 days. - Plan for 6 total weeks antibiotics. (2) Diabetic foot infection Current Visit: Yes Status: Acute Code(s): E11.628 - TYPE 2 DIABETES MELLITUS WITH OTHER SKIN COMPLICATIONS; L08.9 - LOCAL INFECTION OF THE SKIN AND SUBCUTANEOUS TISSUE, UNSP SNOMED Code(s): 072457348 Comment: - Started with right plantar burn in January, and progresssed to a wound, now with abscess and osteomyelitis. - MRI shows "Plantar ulceration below level of the second and third metatarsal heads with underlying cellulitis. Abscess and infected tenosynovitis which extends from the level of the proximal metatarsals to the proximal toes. Marrow signal alteration proximal phalanx of the third toe, consistent with osteomyelitis." - See plan above. (3) Anxiety Current Visit: Yes Status: Acute Code(s): F41.9 - ANXIETY DISORDER, UNSPECIFIED SNOMED Code(s): 34057753 Comment: - Continue Buspar (4) HLD (hyperlipidemia) Current Visit: Yes Status: Acute Code(s): E78.5 - HYPERLIPIDEMIA, UNSPECIFIED SNOMED Code(s): 72572567 Comment: - Continue atorvastatin (5) HTN (hypertension) Current Visit: Yes Status: Acute Code(s): I10 - ESSENTIAL (PRIMARY) HYPERTENSION SNOMED Code(s): 94459106 Comment: - Generally Normotensive - Continue amlodipine, valsartan, HCTZ (6) Type 2 diabetes mellitus Current Visit: Yes Status: Acute Comment: - Poorly controlled, A1c 9.6 - Continue glimepiride, Lispro SS - BG under pretty good control, 150s-170s (7) DVT prophylaxis Current Visit: Yes Status: Acute Code(s): Z29.9 - ENCOUNTER FOR PROPHYLACTIC MEASURES, UNSPECIFIED SNOMED Code(s): 331735662 Comment: - SCDs (8) Full code status Current Visit: Yes Status: Acute Code(s): Z78.9 - OTHER SPECIFIED HEALTH STATUS SNOMED Code(s): 731600340 Comment: Status and Disposition: Inpatient for osteomyelitis. Plan for DC when wound vac available.
--- NOTE | 2019-04-02 17:07 | PN ---
Progress Note - Progress Note Date of Service: 04/02/19 SOAP: Subjective: []Pt seen at bedside. He feels quite well without complaints. Denies CP, SOB, dizziness, nausea, fever or chills. Objective: []Gen: NAD appears well RLE:Vac changed, incision is CDI. Surgical wounds with mild bleeding, no purulence. No erythema surrounding. New vac suctioning well. Able to f/e MTPs 1, 2,4,5 and cap refill less than 2 sec distally. Assessment: []s/p amputation 3rd toe, 3rd Ray for Osteo 03/26, 03/29 Plan: []NWB RLE IV abx, cefazolin, has PICC line Vac change q 3 days. Can DC home with vac when home vac available Vital Signs Temp 99.3 F 04/02/19 17:02 Pulse 80 04/02/19 17:02 Resp 18 04/02/19 17:02 BP 151/79 04/02/19 17:02 Pulse Ox 96 04/02/19 17:02 Intake & Output 04/01/19 04/02/19 04/02/19 18:59 06:59 18:59 Intake Total 375 988 9761 Output Total 700 1150 Balance -70 -350 1370 Intake: IV Fluids 20 15 NS 20 15 IVPB 110 100 105 ABX - CEFAZOLIN 110 100 105 Oral 704 927 8011 Output: Urine 700 1150 Other: Estimated Void Medium Medium Date of Last Bowel 04/02/19 Movement # Bowel Movements 1 Estimated Stool Amount Medium # Voids 3 2 Laboratory Last Values WBC 8.6 10^3/uL (3.5-10.8) 03/29/19 04:58 RBC 4.33 10^6 /uL (4.18-5.48) 03/29/19 04:58 Hgb 12.2 g/dL (14.0-18.0) L 03/29/19 04:58 Hct 37 % (42-52) L 03/29/19 04:58 MCV 85 fL (80-94) 03/29/19 04:58 MCH 28 pg (27-31) 03/29/19 04:58 MCHC 33 g/dL (31-36) 03/29/19 04:58 RDW 14 % (10-15) 03/29/19 04:58 Plt Count 338 10^3/uL (150-450) 03/29/19 04:58 MPV 7.9 fL (7.4-10.4) 03/29/19 04:58 Neut % (Auto) 72.5 % 03/29/19 04:58 Lymph % (Auto) 19.2 % 03/29/19 04:58 Rowan % (Auto) 6.1 % 03/29/19 04:58 Eos % (Auto) 1.8 % 03/29/19 04:58 Baso % (Auto) 0.4 % 03/29/19 04:58 Absolute Neuts (auto) 6.2 10^3/ul (1.5-7.7) 03/29/19 04:58 Absolute Lymphs (auto) 1.7 10^3/ul (1.0-4.8) 03/29/19 04:58 Absolute Monos (auto) 0.5 10^3/ul (0-0.8) 03/29/19 04:58 Absolute Eos (auto) 0.2 10^3/ul (0-0.6) 03/29/19 04:58 Absolute Basos (auto) 0.0 10^3/ul (0-0.2) 03/29/19 04:58 Absolute Nucleated RBC 0.0 10^3/ul 03/29/19 04:58 Nucleated RBC % 0.0 03/29/19 04:58 ESR 80 mm/Hr (0-14) H 03/23/19 12:00 INR (Anticoag Therapy) 1.21 (0.82-1.09) H 03/26/19 04:37 Sodium 135 mmol/L (135-145) 04/01/19 05:33 Potassium 4.0 mmol/L (3.5-5.0) 04/01/19 05:33 Chloride 99 mmol/L (101-111) L 04/01/19 05:33 Carbon Dioxide 31 mmol/L (22-32) 04/01/19 05:33 Anion Gap 5 mmol/L (2-11) 04/01/19 05:33 BUN 10 mg/dL (6-24) 04/01/19 05:33 Creatinine 0.82 mg/dL (0.67-1.17) 04/01/19 05:33 Est GFR ( Amer) 120.3 (>60) 04/01/19 05:33 Est GFR (Non-Af Amer) 99.5 (>60) 04/01/19 05:33 BUN/Creatinine Ratio 12.2 (8-20) 04/01/19 05:33 Glucose 154 mg/dL (70-100) H 04/01/19 05:33 POC Glucose (mg/dL) 173 mg/dL (70-100) H 04/02/19 12:29 Hemoglobin A1c 9.6 % (4.0-5.6) H 03/23/19 12:00 Calcium 8.7 mg/dL (8.6-10.3) 04/01/19 05:33 Total Bilirubin 0.50 mg/dL (0.2-1.0) 03/23/19 12:00 AST 21 U/L (13-39) 03/23/19 12:00 ALT 33 U/L (7-52) 03/23/19 12:00 Alkaline Phosphatase 93 U/L (34-104) 03/23/19 12:00 C-Reactive Protein 67.03 mg/L (<8.01) H 03/25/19 05:46 Total Protein 6.9 g/dL (6.4-8.9) 03/23/19 12:00 Albumin 3.6 g/dL (3.2-5.2) 03/23/19 12:00 Globulin 3.3 g/dL (2-4) 03/23/19 12:00 Albumin/Globulin Ratio 1.1 (1-3) 03/23/19 12:00 Vancomycin Trough 12.0 mcg/mL 03/26/19 04:37
[2019-04-02] MEDS: HYDROmorphone INJ* 0.5 MG/0.5 ML SYRINGE IV SLOW PU PRN ×2 (17:13→21:15)
--- NOTE | 2019-04-02 23:55 | DS ---
CC: Dr. Scot An; Casie Merino NP * DISCHARGE SUMMARY: DATE OF ADMISSION: 03/23/19 ANTICIPATED DATE OF DISCHARGE: 04/03/19 PRIMARY CARE PROVIDER: Casie Merino NP. MY ATTENDING WHILE IN THE HOSPITAL: Dr. Virginia Ray.* (DICTATED BY ROSY FARFAN) CONSULTING ORTHOPEDIST: Dr. Scot An. PRIMARY DISCHARGE DIAGNOSIS: Right lower extremity osteomyelitis, status post right third toe and right third ray amputation. SECONDARY DISCHARGE DIAGNOSES: 1. Diabetes mellitus type 2. 2. Chronic right lower extremity wound. 3. Morbid obesity. 4. Hypertension. 5. Anxiety. STUDIES DONE WHILE IN THE HOSPITAL: Lower extremity MRI from 03/23/19 read as plantar ulceration below the level of the second and third metatarsal heads with underlying cellulitis. Additional more confluent signal around the proximal phalanx of the third toe extending to the dorsal aspect of the third metatarsal with tiny bits far back suggesting gas in the surrounding flexor tendon sheath consistent with abscess and, in fact, a tenosynovitis which extends from the level of the proximal metatarsals to the proximal toes. There is additional fluid in the extensor tendon sheath in the second and fourth toes. Apparent signal alteration in the proximal phalanx of the third toe, consistent with osteomyelitis. Arterial study from 03/26/19 read as limited evaluation of the right lower extremity due to postsurgical change, normal left ankle brachial index of 11.3. Distal left lower extremity Doppler plethysmographic waveforms are normal and limited evaluation on the right, appears grossly normal. MEDICATIONS AT DISCHARGE: 1. Morphine 10 mg p.o. daily. 2. Diovan 25/320 one tab p.o. daily. 3. Glimepiride 1 mg p.o. daily. 4. Buspirone 10 mg p.o. daily. 5. Lipitor 10 mg p.o. daily. 6. Janumet 1 tablet p.o. daily. 7. Tylenol 650 mg p.o. q.6 hours as needed. 8. Cephazolin 2 g IV q.8 hours x2 more days. 9. Heparin flush 1 to 2 mL flush b.i.d. for PICC line. 10. Percocet 5/325 one to two tabs p.o. q.4 hours as needed for pain. New Medications on Discharge: 1. Tylenol. 2. Cephazolin. 3. Heparin flush. 4. Oxycodone. Medications Discontinued on Discharge: Keflex. HOSPITAL COURSE: This is a brief summary of the patient's presentation. For more details, please see the history and physical from Dr. Fernanda Martinez on . In brief, the patient is a 49-year-old male with past medical history significant for the above who has been seen through [facility] several months for his right foot wound that had not been healing and had recently gotten significantly worse. The patient was admitted to the hospital. Orthopedics and infectious disease were consulted. The patient had an MRI as above. The patient was started on vancomycin, cefepime, and Flagyl. The patient's wound cultures grew MSSA. The patient had no growth on his blood cultures. The patient was planned for surgery based on the MRI findings from . The patient underwent an uncomplicated amputation of his right third ray. The patient had no other significant laboratory abnormalities. The patient's CRP declined on antibiotic therapy. The patient's vital signs were stable. The patient had a repeat operation on 03/29/19 for irrigation and debridement, partial wound closure, and placement of a wound VAC. The patient continued to improve with wound VAC changes from 03/29/19 to 04/02/19. On , the patient had another wound VAC change and was deemed ready to go home when the VAC was available. The patient's wound VAC was arranged for 04/03/19 after his 10 a.m. cephazolin infusion. The patient was stable and amenable for discharge on 04/02/19 and will be discharged on 04/03/19. DISCHARGE PLAN BY PROBLEM: 1. Right third toe osteomyelitis, status post third ray amputation. The patient will need 6 total weeks of IV antibiotics per infectious disease. This antibiotic will be cephazolin 2 g every 8 hours with weekly CMP, CBC, and CRP which will be arranged through his infectious disease office. The patient has been set up with [facility] for this and has a PICC line placed which will been maintained through [facility]. The patient will have a wound VAC, which should be maintained through visiting nurse services with VAC changes every 3 days. He should follow up with his orthopedist within 2 weeks to assess for the continued effectiveness of this treatment. The patient will have 32 more days of antibiotics from the day of his discharge. The patient will return to the hospital for high fevers, passing out, failure of wound to continue healing, or other alarming symptoms. The patient will have oxycodone for pain control. 2. Diabetes mellitus type 2. Continue the patient's home glimepiride and Janumet. These will likely be more effective after the patient no longer has infection in his foot, and he should monitor for hypoglycemia on his glimepiride , and this medication should be discontinued first given the relative superiority of other medications for treatment of diabetes mellitus type 2. 3. Hypertension. Continue the patient's valsartan/hydrochlorothiazide and amlodipine. 4. Hyperlipidemia. Continue the patient's Lipitor. 5. Anxiety. Continue the patient's BuSpar. DISPOSITION: Home. CONDITION: Stable. TIME SPENT: Approximately 60 minutes were spent on the discharge of this patient, 30 of which were spent [id number] with the patient obtaining history and physical and discussing the treatment plan. ROSY FARFAN [id number]/DINA #: [id number] ROBB
[2019-04-03] MEDS: ceFAZolin* 2 GM in NS 100 MLS Q8H (Pharmacy Admix) IVPB SCH ×2 (02:25→09:29)
[2019-04-03 07:58] VITALS: BP 160/83
[2019-04-03] MEDS: CMC:Glimepiride (NF) 2 MG TAB PO SCH (09:30)
[2019-04-03] MEDS: Hydrochlorothiazide TAB* 25 MG PO SCH (09:30)
[2019-04-03] MEDS: Atorvastatin* 10 MG TAB PO SCH (09:30)
[2019-04-03] MEDS: Valsartan TAB* 160 MG PO SCH (09:30)
[2019-04-03] MEDS: amLODIPine TAB* 5 MG PO SCH (09:30)
[2019-04-03] MEDS: oxyCODONE/Acetamin 5/325 MG* TAB PO PRN (09:30)
[2019-04-03] MEDS: busPIRone TAB* 10 MG PO SCH (09:31)
[2019-04-03] MEDS: Insulin LISPRO* 1 UNITS UNIT SUBCUT SCH (09:49)
--- NOTE | 2019-04-04 00:42 | DS ---
DISCHARGE SUMMARY: DATE OF ADMISSION: 03/23/19 ACTUAL DATE OF DISCHARGE: 04/03/19 ADDENDUM: This is an addendum to the discharge summary originally written by ROSY Kapoor, on 04/02/19 to confirm that the date of discharge was 04/03/19. Please see his report for further details and the medications at discharge. ATTENDING PHYSICIAN WHILE IN THE HOSPITAL: Dr. Scot Dupont * (dictated by ROSY Gallegos). DISPOSITION: Home. CONDITION: Stable. TIME SPENT: Approximately 20 minutes was spent on this discharge reviewing the original discharge summary. ROSY GALLEGOS [id number]/CPS #: [id number] [id number]
== END 2019-04-03 12:23 | disposition home health service (06) | DRG 314 ==
LOC: SSU 11:32
PROVIDERS: ADMIT Internal Medicine; ATTEND Internal Medicine
PROC: 0Y6T0Z0 Detachment at Right 3rd Toe, Complete, Open Approach (ICD-10-PCS; principal; 2019-03-26 15:30)
PROC: 05HY33Z Insertion of Infusion Device into Upper Vein, Percutaneous Approach (ICD-10-PCS; 2019-03-28)
PROC: 0KBV0ZZ Excision of Right Foot Muscle, Open Approach (ICD-10-PCS; 2019-03-29)
DX: E11.69 Type 2 diabetes mellitus with other specified complication (principal); M86.171 Other acute osteomyelitis, right ankle and foot; E11.628 Type 2 diabetes mellitus with other skin complications; L03.031 Cellulitis of right toe; B95.61 Methicillin susceptible Staphylococcus aureus infection as the cause of diseases classified elsewhere; E11.42 Type 2 diabetes mellitus with diabetic polyneuropathy; I10 Essential (primary) hypertension; E78.5 Hyperlipidemia, unspecified; F41.9 Anxiety disorder, unspecified; E66.01 Morbid (severe) obesity due to excess calories; F17.220 Nicotine dependence, chewing tobacco, uncomplicated; Z68.35 Body mass index [BMI] 35.0-35.9, adult; Z79.84 Long term (current) use of oral hypoglycemic drugs; Z79.899 Other long term (current) drug therapy; Z79.4 Long term (current) use of insulin; Z88.1 Allergy status to other antibiotic agents; Z88.5 Allergy status to narcotic agent; Z88.0 Allergy status to penicillin; Z88.8 Allergy status to other drugs, medicaments and biological substances; Z91.048 Other nonmedicinal substance allergy status; Z83.3 Family history of diabetes mellitus; Z82.49 Family history of ischemic heart disease and other diseases of the circulatory system; Z80.49 Family history of malignant neoplasm of other genital organs
CPT/HCPCS: 36415; 80048; 80053; 80202; 83036; 85025; 85610; 85652; 86140; 87070; 87073; 87077; 87186; 87205; 88305; 88311; 93005; 93922; A9270-GY; C1751; G8978-GP-CJ; G8979-GP-CI; J0360; J0690; J0692; J1170; J1200; J1644; J2001; J2250; J2590; J2704; J3010; J3370; J3490

== ENCOUNTER 2022-01-29 13:37 | Inpatient (IN) ==
[2022-01-29 15:17] LABS: ABS Eosinophils 0.1 10^3/ul (0-0.6); ABS Monocytes 0.7 10^3/ul (0-0.8); ABS Neutrophils 10.6 10^3/ul (1.5-7.7); Eosinophil % 0.6 %; Hematocrit 45 % (42-52); Hemoglobin 14.9 g/dL (14.0-18.0); Lymphocyte % 8.2 %; Mean Corpuscular HGB Conc 34 g/dL (31-36); Mean Corpuscular Hemoglobin 29 pg (27-31); Mean Corpuscular Volume 86 fL (80-94); Mean Platelet Volume 8.9 fL (7.4-10.4); Platelet Count 223 10^3/uL (150-450); Red Blood Count 5.16 10^6 /uL (4.18-5.48); Red Cell Distribution Width 14 % (10-15); White Blood Count 12.5 10^3/uL (3.5-10.8)
[2022-01-29 16:10] LABS: CO2 Carbon Dioxide 30 mmol/L (22-32); Calcium 9.5 mg/dL (8.6-10.3); Chloride 97 mmol/L (101-111); Sodium 134 mmol/L (135-145)
[2022-01-29 16:16] LABS: ALT 18 U/L (7-52); Albumin/Globulin Ratio 1.3 (1-3); Alkaline Phosphatase 100 U/L (35-149); Blood Urea Nitrogen 15 mg/dL (6-24); C Reactive Protein 43.92 mg/L (<8.01); Globulin 3.2 g/dL (2-4); Glucose 273 mg/dL (70-100); Total Protein 7.2 g/dL (6.4-8.9); Uric Acid 4.4 mg/dL (4.4-7.6); eGFR CKD-EPI 108.6 (>60)
[2022-01-29 16:18] LABS: Anion Gap 7 mmol/L (2-11)
[2022-01-29] MEDS ORDERED: Cefepime 2 GM in Dextrose 2 GM/50 ML BAG IV ONE (17:20)
[2022-01-29 17:40] LABS: Potassium Redraw 3.9 mmol/L (3.5-5.0)
[2022-01-29] MEDS ORDERED: Vancomycin 1,750 MG in NS 0.9% 250 ml 250 ML IVPB SCH (18:00)
[2022-01-29 18:37] LABS: Activated Partial Thrombo Time 22.3 seconds (26.0-38.0); INR 0.98 (0.89-1.11)
[2022-01-29] MEDS ORDERED: Gadoteridol (CONTRAST) 279.3 MG/ML 10 ML IV ONE (19:40)
[2022-01-29] MEDS ORDERED: Vancomycin 2,000 MG in NS 0.9% 500 ml BAG 500 ML IVPB ONE (20:00)
[2022-01-29] MEDS ORDERED: Vancomycin per Pharmacy 1 EA NOTE FOLLOW UP SCH (20:00)
[2022-01-29] MEDS: Lactated Ringers 1000 ml BAG 1,000 ML IV SCH ×2 (20:43→20:44)
[2022-01-29 21:11] LABS: High Sensitivity Troponin 1 Hr 9 pg/mL (<20)
[2022-01-29] MEDS ORDERED: Dextrose 50% Syringe 50 ml 25 GM/50 ML SYRINGE IV PUSH PRN (21:32)
[2022-01-29] MEDS: Enoxaparin 40 MG/0.4 ML SYR SUBCUT SCH (23:23)
[2022-01-30 04:59] LABS: ABS Eosinophils 0.1 10^3/ul (0-0.6); ABS Lymphocytes 1.1 10^3/ul (1.0-4.8); ABS Monocytes 0.8 10^3/ul (0-0.8); ABS Neutrophils 8.2 10^3/ul (1.5-7.7); Eosinophil % 0.7 %; Hematocrit 41 % (42-52); Hemoglobin 13.9 g/dL (14.0-18.0); Lymphocyte % 10.8 %; Mean Corpuscular HGB Conc 34 g/dL (31-36); Mean Corpuscular Hemoglobin 29 pg (27-31); Mean Corpuscular Volume 86 fL (80-94); Mean Platelet Volume 8.5 fL (7.4-10.4); Nucleated Red Blood Cells % 0.1; Platelet Count 204 10^3/uL (150-450); Red Blood Count 4.74 10^6 /uL (4.18-5.48); Red Cell Distribution Width 14 % (10-15); White Blood Count 10.2 10^3/uL (3.5-10.8)
[2022-01-30] MEDS: Cefepime 2 GM in Dextrose 2 GM/50 ML BAG IV SCH ×2 (05:38→18:47)
[2022-01-30 05:42] LABS: Calcium 8.5 mg/dL (8.6-10.3); HDL Cholesterol 38.2 mg/dL; Magnesium 1.9 mg/dL (1.9-2.7); Potassium 3.8 mmol/L (3.5-5.0); eGFR CKD-EPI 112.3 (>60)
[2022-01-30 06:36] LABS: Urine Appearance Clear; Urine Color Yellow; Urine Ketones Negative (Negative); Urine Urobilinogen 0.2 (Negative) (Negative)
[2022-01-30 06:37] LABS: Urine Bilirubin Negative (Negative); Urine Blood Negative (Negative); Urine Glucose 1+ (250mg/dL) (Negative); Urine Nitrite Negative (Negative); Urine Protein Negative (Negative); Urine Specific Gravity 1.034 (1.002-1.030)
[2022-01-30] MEDS: Vancomycin 1,750 MG in NS 0.9% 500 ml BAG 500 ML IVPB SCH ×3 (12:11→16:26)
[2022-01-30] MEDS: Insulin GLARGINE 100 un/ml 10 ml VIAL SUBCUT SCH (20:51)
[2022-01-30] MEDS: Enoxaparin 40 MG/0.4 ML SYR SUBCUT SCH (20:54)
[2022-01-30] MEDS ORDERED: Insulin GLARGINE 100 un/ml 10 ml VIAL SUBCUT SCH (21:00)
[2022-01-31] MEDS: Vancomycin 1,750 MG in NS 0.9% 500 ml BAG 500 ML IVPB SCH ×2 (03:49→16:40)
[2022-01-31 05:41] LABS: Hematocrit 41 % (42-52); Hemoglobin 13.8 g/dL (14.0-18.0); Mean Corpuscular HGB Conc 34 g/dL (31-36); Mean Corpuscular Hemoglobin 29 pg (27-31); Mean Corpuscular Volume 87 fL (80-94); Mean Platelet Volume 8.7 fL (7.4-10.4); Platelet Count 181 10^3/uL (150-450); Red Blood Count 4.71 10^6 /uL (4.18-5.48); Red Cell Distribution Width 14 % (10-15); White Blood Count 5.9 10^3/uL (3.5-10.8)
[2022-01-31 05:58] LABS: Calcium 8.4 mg/dL (8.6-10.3); Magnesium 1.9 mg/dL (1.9-2.7); Potassium 3.8 mmol/L (3.5-5.0); eGFR CKD-EPI 112.9 (>60)
[2022-01-31] MEDS: Cefepime 2 GM in Dextrose 2 GM/50 ML BAG IV SCH ×3 (07:06→20:34)
[2022-01-31] MEDS ORDERED: Vancomycin Trough Check NOTE FOLLOW UP ONE (15:30)
[2022-01-31] MEDS: Enoxaparin 40 MG/0.4 ML SYR SUBCUT SCH (20:34)
[2022-01-31] MEDS: Insulin GLARGINE 100 un/ml 10 ml VIAL SUBCUT SCH (21:13)
[2022-02-01] MEDS: Vancomycin 1,750 MG in NS 0.9% 500 ml BAG 500 ML IVPB SCH (04:32)
[2022-02-01 04:50] LABS: ABS Eosinophils 0.2 10^3/ul (0-0.6); ABS Lymphocytes 1.3 10^3/ul (1.0-4.8); ABS Monocytes 0.7 10^3/ul (0-0.8); ABS Neutrophils 4.5 10^3/ul (1.5-7.7); Eosinophil % 2.5 %; Hematocrit 39 % (42-52); Hemoglobin 13.1 g/dL (14.0-18.0); Mean Corpuscular HGB Conc 34 g/dL (31-36); Mean Corpuscular Hemoglobin 29 pg (27-31); Mean Corpuscular Volume 85 fL (80-94); Mean Platelet Volume 8.2 fL (7.4-10.4); Platelet Count 189 10^3/uL (150-450); Red Blood Count 4.55 10^6 /uL (4.18-5.48); Red Cell Distribution Width 13 % (10-15); White Blood Count 6.7 10^3/uL (3.5-10.8)
[2022-02-01 05:25] LABS: Calcium 8.2 mg/dL (8.6-10.3); Magnesium 1.8 mg/dL (1.9-2.7); Potassium 3.6 mmol/L (3.5-5.0)
[2022-02-01] MEDS: Cefepime 2 GM in Dextrose 2 GM/50 ML BAG IV SCH ×2 (08:17→09:13)
[2022-02-01 10:54] VITALS: BP 154/90
[2022-02-01] MEDS ORDERED: DALBAVANCIN HCL (NF) 500 MG/25 ML VIAL IVPB ONE (11:57)
[2022-02-01] MEDS ORDERED: DALVANCE 1500 MG IV ONCE (for CrCl >/= 30 or regular HD) IVPB ONE (14:00)
[2022-02-01] MEDS ORDERED: Insulin GLARGINE 100 un/ml 10 ml VIAL SUBCUT SCH (21:00)
[2022-02-02] MEDS ORDERED: Vancomycin Trough Check NOTE FOLLOW UP ONE (15:30)
== END 2022-02-01 17:20 | disposition home or self-care (01) | DRG 720 ==
LOC: EDHOLD 13:37 → ED 13:37 → SUATTDRO 20:35 → SSU 22:00
PROVIDERS: ADMIT Internal Medicine; ATTEND Family Medicine

== ENCOUNTER 2024-07-29 10:11 | Inpatient (IN) ==
[2024-07-29] MEDS: Cefepime 1 GM in Dextrose 1 GM/50 ML BAG IV ONE (11:27)
[2024-07-29 11:36] LABS: Hematocrit 40.4 % (38-53); Hemoglobin 13.7 g/dL (13.2-16.3); Mean Corpuscular Hemoglobin 28.9 pg (27-33); Mean Corpuscular Hgb Conc 33.8 g/dL (31-36); Mean Corpuscular Volume 85.5 fL (80-97); Red Blood Count 4.73 10^6/uL (4.06-5.63); Red Cell Distribution Width 13.4 % (12-17)
[2024-07-29 12:05] LABS: Albumin 3.5 g/dL (3.5-5.7); Albumin/Globulin Ratio 1.3 (1-3); C Reactive Protein 166.98 mg/L (<8.01); Calcium 8.4 mg/dL (8.6-10.3); Creatinine, Serum 0.67 mg/dL (0.67-1.17); Globulin 2.8 g/dL (2-4); Total Bilirubin 1.1 mg/dL (0.2-1.0); Total Protein 6.3 g/dL (6.4-8.9); eGFR CKD-EPI 110.3 (>60)
[2024-07-29] MEDS: Vancomycin 1,250 MG in NS 0.9% 250 ml 250 ML IVPB ONE (12:12)
[2024-07-29 12:25] LABS: ABS Eosinophils 0.2 10^3/uL (0.0-0.5); ABS Lymphocytes 1.4 10^3/uL (1.0-4.8); ABS Monocytes 0.8 10^3/uL (0.0-1.1); ABS Neutrophils 9.3 10^3/uL (1.5-7.6); ABS Nucleated RBC 0.01 10^3/ul; Lymphocyte % 11.7 %; Mean Platelet Volume 9.4 fL (7.5-11.2); Nucleated Red Blood Cells % 0.1 %/100WBC (0.0-0.8); Platelet Count 210 10^3/uL (150-450); White Blood Count 11.8 10^3/uL (3.6-10.2)
[2024-07-29] MEDS ORDERED: Dextrose 50% Syringe 50 ml 25 GM/50 ML SYRINGE IV PUSH PRN (15:47)
[2024-07-29] MEDS: Heparin 5000 UNITS/ML 1 mL VIAL SUBCUT SCH (16:19)
[2024-07-29 17:22] LABS: HDL Cholesterol 40.6 mg/dL
[2024-07-29] MEDS ORDERED: Zosyn per Pharmacy NOTE FOLLOW UP SCH (19:00)
[2024-07-29] MEDS ORDERED: Vancomycin per Pharmacy 1 EA NOTE FOLLOW UP SCH (19:00)
[2024-07-29] MEDS ORDERED: Vancomycin 1,000 MG in NS 0.9% 250 ml 250 ML IVPB SCH (20:00)
[2024-07-29] MEDS: Vancomycin 1,250 MG in NS 0.9% 250 ml 250 ML IVPB SCH (20:54)
[2024-07-29] MEDS: Piperacillin/Tazobac 3.375 BAG 3.375 GM/100 ML BAG IV ONE (22:43)
[2024-07-30] MEDS: ZOSYN 3.375 GM Q8H per EXTENDED INFUSION IV SCH (04:18)
[2024-07-30 07:58] LABS: ABS Basophils 0.1 10^3/uL (0.0-0.1); ABS Eosinophils 0.2 10^3/uL (0.0-0.5); ABS Lymphocytes 1.7 10^3/uL (1.0-4.8); ABS Monocytes 0.8 10^3/uL (0.0-1.1); ABS Neutrophils 6.7 10^3/uL (1.5-7.6); Eosinophil % 2.2 %; Hematocrit 37.8 % (38-53); Hemoglobin 13.3 g/dL (13.2-16.3); Lymphocyte % 17.4 %; Mean Corpuscular Hemoglobin 29.5 pg (27-33); Mean Corpuscular Hgb Conc 35.1 g/dL (31-36); Mean Corpuscular Volume 84.1 fL (80-97); Mean Platelet Volume 8.5 fL (7.5-11.2); Platelet Count 235 10^3/uL (150-450); White Blood Count 9.5 10^3/uL (3.6-10.2)
[2024-07-30 08:42] LABS: Calcium 8.1 mg/dL (8.6-10.3); Creatinine, Serum 0.74 mg/dL (0.67-1.17); Potassium 3.9 mmol/L (3.5-5.0)
[2024-07-30] MEDS ORDERED: Vancomycin 1000 MG in NS 0.9% 250 ML IVPB SCH (15:00)
[2024-07-30] MEDS: Vancomycin Trough Check NOTE FOLLOW UP ONE (16:27)
[2024-07-30] MEDS: Vancomycin 1000 MG in NS 0.9% 250 ML IVPB SCH (16:49)
[2024-07-30] MEDS: ceFAZolin 2 GM PREMIX 2 GM/50 ML BAG IV SCH (18:38)
[2024-07-30] MEDS ORDERED: Metoclopramide 5 MG/ML VIAL (10 mg) IV PRN (20:08)
[2024-07-30] MEDS ORDERED: fentaNYL 100 mcg/2 ml 50 MCG/ML VIAL IV PRN (20:08)
[2024-07-30] MEDS ORDERED: Naloxone 0.4 mg VIAL 0.4 mg/ml 1 ml VIAL IV PRN (20:08)
[2024-07-30] MEDS ORDERED: Ondansetron 4 mg VIAL 2 MG/ML 2 ml VIAL IV PRN (20:08)
[2024-07-30] MEDS ORDERED: NS 0.45% 1000 ml BAG 1,000 ML IV SCH (21:00)
[2024-07-31] MEDS: Buffered Lidocaine 1% SYRIN 1 ml INTRADERM ONE (05:57)
[2024-07-31] MEDS ORDERED: Bupivacaine 0.25% SDV 30 ML ONE (06:10)
[2024-07-31 06:21] LABS: ABS Eosinophils 0.2 10^3/uL (0.0-0.5); ABS Lymphocytes 1.4 10^3/uL (1.0-4.8); ABS Monocytes 0.7 10^3/uL (0.0-1.1); Eosinophil % 2.7 %; Hematocrit 39.3 % (38-53); Hemoglobin 13.4 g/dL (13.2-16.3); Lymphocyte % 19.6 %; Mean Corpuscular Hemoglobin 28.9 pg (27-33); Mean Corpuscular Hgb Conc 34.1 g/dL (31-36); Mean Corpuscular Volume 84.8 fL (80-97); Mean Platelet Volume 8.6 fL (7.5-11.2); Platelet Count 247 10^3/uL (150-450); Red Blood Count 4.63 10^6/uL (4.06-5.63); White Blood Count 7.3 10^3/uL (3.6-10.2)
[2024-07-31 06:38] LABS: Calcium 8.5 mg/dL (8.6-10.3); Creatinine, Serum 0.82 mg/dL (0.67-1.17); Potassium 3.9 mmol/L (3.5-5.0); eGFR CKD-EPI 103.7 (>60)
[2024-07-31] MEDS: Scopolamine 1 mg/72hr PATCH TRANSDERM ONE (06:40)
[2024-07-31] MEDS: Lactated Ringers 1000 ml BAG 1,000 ML IV SCH (06:40)
[2024-07-31] MEDS ORDERED: Midazolam 2 mg/2 ml VIAL 1 mg/ml 2 ml VIAL (2 mg) ONE (07:23)
[2024-07-31] MEDS ORDERED: fentaNYL 100 mcg/2 ml 50 MCG/ML VIAL ONE (07:35)
[2024-07-31] MEDS ORDERED: Propofol 10 MG/ML 20 ML BTL ONE (07:42)
[2024-07-31] MEDS ORDERED: HYDROmorphone 0.5 MG/0.5 ML SYRINGE ONE (07:51)
[2024-07-31] MEDS ORDERED: Vancomycin Trough Check NOTE FOLLOW UP ONE (08:30)
[2024-07-31] MEDS ORDERED: Labetalol IV 5 MG/ML 20 ml VIAL ONE (08:46)
[2024-07-31] MEDS ORDERED: hydrALAZINE 20 mg/ml 1 ML Vial IV ONE (08:48)
[2024-07-31] MEDS: hydrALAZINE 20 mg/ml 1 ML Vial IV IV SLOW PU PRN (08:50)
[2024-07-31] MEDS ORDERED: Polyethylene Glycol 3350 17 GM PACKET PO PRN (10:44)
[2024-07-31] MEDS ORDERED: Senna TAB 8.6 mg TAB PO PRN (10:44)
[2024-07-31] MEDS ORDERED: Magnesium Hydroxide LIQ 30 ML UDC PO PRN (10:44)
[2024-07-31] MEDS: Labetalol IV 5 MG/ML 20 ml VIAL IV PUSH ONE (10:47)
[2024-07-31] MEDS: Magnesium Hydroxide LIQ 30 ML UDC PO SCH (10:56)
[2024-07-31] MEDS: Lactated Ringers 1000 ml BAG 1,000 ML IV ONE (11:00)
[2024-07-31] MEDS: Acetaminophen IV 1 GM/100ML 1,000 MG/100 ML BAG IV ONE (11:01)
[2024-07-31] MEDS: Polyethylene Glycol 3350 17 GM PACKET PO SCH (18:46)
[2024-08-01] MEDS: Heparin 5000 UNITS/ML 1 mL VIAL SUBCUT SCH (06:24)
[2024-08-01 06:35] LABS: Hematocrit 38.1 % (38-53); Hemoglobin 13.4 g/dL (13.2-16.3); Mean Corpuscular Hemoglobin 29.8 pg (27-33); Mean Corpuscular Hgb Conc 35.1 g/dL (31-36); Mean Corpuscular Volume 84.9 fL (80-97); Red Blood Count 4.49 10^6/uL (4.06-5.63); Red Cell Distribution Width 13.2 % (12-17); White Blood Count 6.3 10^3/uL (3.6-10.2)
[2024-08-01 06:40] LABS: Calcium 7.9 mg/dL (8.6-10.3); Creatinine, Serum 0.84 mg/dL (0.67-1.17)
[2024-08-01 07:18] LABS: ABS Eosinophils 0.1 10^3/uL (0.0-0.5); ABS Lymphocytes 0.6 10^3/uL (1.0-4.8); ABS Monocytes 0.5 10^3/uL (0.0-1.1); ABS Neutrophils 5.1 10^3/uL (1.5-7.6); Eosinophil % 1.7 %; Lymphocyte % 9.2 %; Mean Platelet Volume 8.6 fL (7.5-11.2); Nucleated Red Blood Cells % 0.1 %/100WBC (0.0-0.8); Platelet Count 230 10^3/uL (150-450)
[2024-08-01 13:44] VITALS: BP 182/90
== END 2024-08-01 16:30 | disposition home or self-care (01) | DRG 617 ==
LOC: ED 10:11 → EDHOLD 10:11 → MED 15:58 → SUATTDRO 07-30 11:43
PROVIDERS: ADMIT Internal Medicine; ATTEND Internal Medicine